=== PATIENT | male | born 1940 | race Caucasian/White ===

== ENCOUNTER 2019-10-04 13:30 | Outpatient (RCR) | payer MEDICARE, BC, SELFPAY ==
[2019-08-28 11:50] VITALS: PULSE 55
--- NOTE | 2019-09-24 15:20 | PCCPR ---
Absent today, due to recent skin biopsy, plans to return Tuesday.
--- NOTE | 2019-10-10 09:32 | PCCCNOTE ---
Program is temporarily suspended due to COVID outbreak.
--- NOTE | 2019-10-17 13:47 | PCCPR ---
Called patient in regards to the temporary closure of our department continuing until at least November 14. Patient is doing well and states he is walking, taking the stairs often, and doing a lot of yardwork. Will mail out temporary home based exercise guidelines. Will continue to follow patient weekly.
--- NOTE | 2019-10-24 11:18 | PCCPR ---
Addendum entered by Erika Liao RN 10/24/19 11:46: Jose Cruz returned our call, he is doing well, received the exercise guidelines in the mail and is busy doing yard work and is walking on the treadmill at home as well as stretches. He has not complaints. Original Note: Called Jose Cruz today for weekly checks, did not answer phone, message left.
--- NOTE | 2019-10-30 15:10 | PCCPR ---
Addendum entered by Miguelina Bradley RN 10/31/19 11:09: Jose Cruz returned call. Left voicemail stating he is doing fine. Will follow up with him next week. Original Note: Called Jose Cruz for our weekly phone calls to check on his activity and progress. Unable to reach him message left.
--- NOTE | 2019-11-07 13:35 | PCCPR ---
Weekly update call-Left message.
--- NOTE | 2019-11-14 13:08 | PCCPR ---
Weekly update call-informed patient of continued closure through the month of November due to the extension of the [facility] order. No questions at this time.
--- NOTE | 2019-11-29 12:56 | PCCPR ---
Starting Bi-Weekly Calls. Spoke with patient. No questions or concerns at this time.
--- NOTE | 2019-12-13 14:48 | PCCPR ---
Bi-weekly phone call made, left message.
--- NOTE | 2019-12-25 13:34 | PCCPR ---
Spoke with Gause today discussed our plan to resume classes January with new safety guidelines due to jignesh. He is still interested in returning. Explained he will be mailing out some guideline information on the new expectations and procedures.
== END 2019-10-04 23:59 | disposition home or self-care (01) ==
LOC: ANHCPREHAB 13:30
PROVIDERS: PCP Internal Medicine
DX: Z95.2 Presence of prosthetic heart valve (principal)
CPT/HCPCS: 93798

== ENCOUNTER 2020-02-03 12:34 | Emergency (ER) | payer MEDICARE, BC, SELFPAY ==
--- NOTE | 2020-02-03 12:42 | ED.URI ---
HPI - URI/Sore Throat General Chief Complaint: Upper Respiratory Infection Stated Complaint: Sore throat/dizziness Time Seen by Provider: 02/03/20 12:47 Source: patient and RN notes reviewed Mode of arrival: ambulatory Limitations: no limitations History of Present Illness HPI Narrative: This is a 79 years old male presents to the office for an evaluation of sore throat. Onset: 5days. Associated with sinus pressure, dizziness. His PCP called in nasal spray which has not helping. He supposes to visit his sister at the [facility] and wants to make sure he is not contiguous to go there this evening. He was a former smoker and quit many years ago. Related Data Home Medications Medication Instructions Recorded Confirmed albuterol sulfate [ProAir HFA] 2 puff INHALATION QID PRN 08/28/19 08/28/19 amlodipine 5 mg PO DAILY 08/28/19 08/28/19 aspirin 325 mg PO DAILY 08/28/19 08/28/19 cephalexin 500 mg PO Q12H PRN 08/28/19 08/28/19 denosumab [Prolia] 60 mg SUBCUT [id number] 08/28/19 08/28/19 dexlansoprazole [Dexilant] 30 mg PO DAILY 08/28/19 08/28/19 hydrocodone-acetaminophen 1 tablet PO Q6H PRN 08/28/19 08/28/19 lisinopril 5 mg PO DAILY 08/28/19 08/28/19 metoprolol tartrate 100 mg PO Q12H 08/28/19 08/28/19 mometasone [Nasonex] 2 spray INTRANASAL DAILY 08/28/19 08/28/19 uqfbleqynzzk-nym-qqer-FA-vit K 1 tablet PO DAILY 08/28/19 08/28/19 [Adults Multivitamin] mupirocin 1 applic TOPICAL TID 08/28/19 08/28/19 ondansetron 4 mg PO Q6H PRN 08/28/19 08/28/19 polyethylene glycol 3350 [Miralax] 17 g PO DAILY 08/28/19 08/28/19 prednisolone acetate [Pred Forte] 1 drp RIGHTEYE DAILY 08/28/19 08/28/19 simvastatin 20 mg PO HS 08/28/19 08/28/19 umeclidinium-vilanterol [Anoro 1 inh INHALATION DAILY 08/28/19 08/28/19 Ellipta] vitamin B complex 1 cap PO DAILY 08/28/19 08/28/19 umeclidinium-vilanterol [Anoro 1 inh INHALATION DAILY 09/06/19 09/06/19 Ellipta] Allergies Allergy/AdvReac Type Severity Reaction Status Date / Time No Known Allergies Allergy Unverified 09/06/18 10:40 Review of Systems Review of Systems: Narrative: CONSTITUTIONAL: Denies fever, chills ENT: Reports throat pain when he swallows. Denies ears pain. CARDIOVASCULAR: Denies chest pain, palpitation RESPIRATORY: Denies dyspnea, wheezing, cough GASTROINTESTINAL: Denies abdominal pain, nausea, vomiting, diarrhea. SKIN: Denies rash MUSCULOSKELETAL: Denies acute back pain NEUROLOGIC: Denies lightheaded. Reports dizziness at times described as motion sickness/room spinning when he moves his head too quickly. All other systems reviewed are negative, except as documented in HPI. [facility] Past Medical History Medical History Asthma COPD (chronic obstructive pulmonary disease) GERD (gastroesophageal reflux disease) HTN (hypertension) Hypercholesterolemia IBS (irritable bowel syndrome) Left cataract Systolic murmur Surgical History Surgical History H/O umbilical hernia repair Family History Family History Father Acute myocardial infarction Hypertension Mother Cerebrovascular accident Hypertension Mother Ovarian cancer Father Lung cancer Sibling Hypertension Social History Social History Smoking packs per day: 1 Smoking cigarettes per day: 20.0 Years smoked: 3 Smoking pack-years: 3.00 Smoking status: Former smoker Tobacco type: cigarettes Alcohol intake: never Substance use: never Gender identity (if verbalized by the patient): Male Comments At time of signature, I agree with nursing past medical, surgical, social and family history. There is no relevant family history pertinent to the presenting complaint. Exam Narrative: Exam Narrative: GENERAL: This is a well-nourished, well-developed patient, in no apparent distr
[2020-02-03 12:45] VITALS: BP 130/73; PULSE 58; RESP 16; TEMP 37.5; O2SAT 99
== END 2020-02-03 13:05 | disposition home or self-care (01) ==
PROVIDERS: Emergency Provider Nurse Practitioner; PCP Internal Medicine
DX: J01.40 Acute pansinusitis, unspecified (principal); Z87.891 Personal history of nicotine dependence; J44.9 Chronic obstructive pulmonary disease, unspecified; K21.9 Gastro-esophageal reflux disease without esophagitis; I10 Essential (primary) hypertension; E78.00 Pure hypercholesterolemia, unspecified; R01.1 Cardiac murmur, unspecified
CPT/HCPCS: 99213; G0463

== ENCOUNTER 2020-08-26 06:12 | Emergency (ER) | payer MEDICARE, BC, SELFPAY ==
--- NOTE | ~2020-08-26 | XR_ITS ---
EXAMINATION: XR chest 2V DATE: 08/26/2020 06:40 INDICATION: Dizziness. TECHNIQUE: Frontal and lateral views of the chest were obtained. COMPARISON: None. FINDINGS: There is mild atelectasis in the lower lung zones. No pleural effusion or pneumothorax. The heart size is normal. Sternotomy wires are noted. IMPRESSION: 1. Mild atelectasis in the lower lung zones. Reviewed, dictated and finalized at location A. [employer]
[2020-08-26 06:09] VITALS: BP 163/81; PULSE 71; RESP 16; TEMP 36.4; O2SAT 98
--- NOTE | 2020-08-26 06:15 | ECG_ITS ---
Measurements Intervals [place] Rate: 66 P: 54 [place]: 177 QRS: -25 QRSD: 110 T: 73 QT: 392 QTc: 412 Interpretive Statements SINUS RHYTHM BORDERLINE ST-T WAVE ABNORMALITY- HIGH LATERAL LEADS BASELINE ARTIFACT- I, II, AVR, AVL, AVF, V1 BORDERLINE ECG Electronically Signed On 08-26-2020 7:01:00 DYNAMOMETER TESTER by Gideon Weller D.O.
--- NOTE | 2020-08-26 06:17 | ED.DIZZY ---
HPI - Dizziness General Chief Complaint: Dizziness Stated Complaint: dizziness History of Present Illness HPI Narrative: Patient is an 79-year-old male who presents ER with sudden onset dizziness. Patient woke up from sleeping and stood up to go the bathroom when everything started spinning. He felt unbalanced. He did not fall or strike his head. He also felt very nauseous but did not vomit. No chest pain or shortness of breath. Does report some mild left shoulder blade that he is unsure why he has. He also reports he has been having some ringing in his right ear that is new today. He reports that that is intermittent but it is associate with his symptoms today. Symptoms are worse with turning his head left and right. No focal numbness or weakness in arm or leg. No slurred speech. Related Data Home Medications Medication Instructions Recorded Confirmed albuterol sulfate [ProAir HFA] 2 puff INHALATION QID PRN 08/28/19 08/28/19 amlodipine 5 mg PO DAILY 08/28/19 08/28/19 aspirin 325 mg PO DAILY 08/28/19 08/28/19 cephalexin 500 mg PO Q12H PRN 08/28/19 08/28/19 denosumab [Prolia] 60 mg SUBCUT [id number] 08/28/19 08/28/19 dexlansoprazole [Dexilant] 30 mg PO DAILY 08/28/19 08/28/19 hydrocodone-acetaminophen 1 tablet PO Q6H PRN 08/28/19 08/28/19 lisinopril 2.5 mg PO DAILY 08/28/19 08/28/19 metoprolol tartrate 100 mg PO Q12H 08/28/19 08/28/19 mometasone [Nasonex] 2 spray INTRANASAL DAILY 08/28/19 08/28/19 bmlsbhfzvrws-sbi-vhsc-FA-vit K 1 tablet PO DAILY 08/28/19 08/28/19 [Adults Multivitamin] mupirocin 1 applic TOPICAL TID 08/28/19 08/28/19 ondansetron 4 mg PO Q6H PRN 08/28/19 08/28/19 polyethylene glycol 3350 [Miralax] 17 g PO DAILY 08/28/19 08/28/19 prednisolone acetate [Pred Forte] 1 drp RIGHTEYE DAILY 08/28/19 08/28/19 simvastatin 20 mg PO HS 08/28/19 08/28/19 umeclidinium-vilanterol [Anoro 1 inh INHALATION DAILY 08/28/19 08/28/19 Ellipta] vitamin B complex 1 cap PO DAILY 08/28/19 08/28/19 umeclidinium-vilanterol [Anoro 1 inh INHALATION DAILY 09/06/19 09/06/19 Ellipta] ergocalciferol (vitamin D2) tablet PO 08/26/20 vdwdczuqkmkn-qekgstsc-dlkonr 1 tablet PO DAILY 08/26/20 [Centrum Silver] umeclidinium-vilanterol [Anoro INHALATION 08/26/20 Ellipta] Allergies Allergy/AdvReac Type Severity Reaction Status Date / Time No Known Allergies Allergy Unverified 09/06/18 10:40 Review of Systems Review of Systems: All systems reviewed & are unremarkable except as noted in HPI and below Constitutional: Constitutional: Denies chills, Denies fever(s) and Denies weakness ENT: Reports dizziness and Denies nasal congestion Comments: Tinnitus Cardiovascular: Cardiovascular: Denies chest pain, Denies rapid heart rate and Denies radiating jaw, neck or arm pain Respiratory: Respiratory: Denies cough, Denies dyspnea and Denies wheezing Gastrointestinal: Gastrointestinal: Reports nausea and Denies vomiting Neurologic: Reports dizziness, Denies headache(s), Denies focal weakness and Denies numbness PMFSH Past Medical History Medical History (Updated 08/26/20 @ 07:46 by Eris Magana MD) Asthma COPD (chronic obstructive pulmonary disease) GERD (gastroesophageal reflux disease) HTN (hypertension) Hypercholesterolemia IBS (irritable bowel syndrome) Left cataract Systolic murmur Surgical History Surgical History (Updated 08/26/20 @ 06:19 by Eris Magana MD) H/O umbilical hernia repair History of aortic valve replacement Family History Family History Father Acute myocardial infarction Hypertension Mother Cerebrovascular accident Hypertension Mother Ovarian cancer Father Lung cancer Sibling Hypertension Social History Social History Smoking packs per day: 1 Smoking cigarettes per day: 20.0 Years smoked: 3 Smoking pack-years: 3.00 Smoking status: Former smoker Tobacco
[2020-08-26] MEDS: SODIUM CHLORIDE 0.9% IV 500 ML 999 ML IV CONT (06:33)
[2020-08-26 06:34] LABS: Basophils Absolute Auto 0.1 K/mm3 (0.0-0.1); Basophils Percent Auto 1.4 % (0.2-1.2); Eosinophils Absolute Auto 0.6 K/mm3 (0-0.3); Eosinophils Percent Auto 8.2 % (0-4.4); Hematocrit 34.3 % (42.0-52.0); Immature Granulocyte Absolute 0.04 K/mm3 (0.00-0.031); Immature Granulocyte Percent A 0.5 % (0-0.5); Lymphocytes Absolute Auto 1.79 K/mm3 (0.9-3.2); Lymphocytes Percent Auto 24.3 % (18.3-44.2); Mean Corpuscular HGB Conc 32.1 g/dl (32-36); Mean Corpuscular Volume 84.1 fl (80-100); Mean Platelet Volume 9.4 fl (7.4-10.4); Neutrophils Absolute Auto 3.8 K/mm3 (1.3-6.7); Neutrophils Percent Auto 51.6 % (45.5-73.1); Platelet Count Result 307 k/mm3 (150-375); Red Blood Count 4.08 M/mm3 (4.6-6.20); Red Cell Distribution Width 15.3 % (11.5-14.5); White Blood Count 7.4 K/mm3 (4.5-10.0)
[2020-08-26] MEDS: MECLIZINE HCL 25 MG TABLET PO (06:34)
[2020-08-26] MEDS: ONDANSETRON INJ 4 MG/2 ML VIAL IV PUSH (06:34)
[2020-08-26 06:44] LABS: Anion Gap 5 mmol/L (8-16); Blood Urea Nitrogen 12 mg/dL (9-20); Calcium 8.5 mg/dL (8.4-10.2); Carbon Dioxide 27 mmol/L (22-30); Chloride 105 mmol/L (98-107); Estimated CRCL calculation 60 ml/min; Estimated Glomerular Filt Rate > 60; Glucose 103 mg/dL (75-110); Potassium 3.9 mmol/L (3.4-5.0); Sodium 137 mmol/L (137-145)
[2020-08-26 06:56] LABS: Troponin I < 0.012 ng/mL (0.000-0.034)
[2020-08-26 07:17] VITALS: BP 155/83; PULSE 75; RESP 22; O2SAT 100
[2020-08-26 08:21] VITALS: BP 137/69; PULSE 64; RESP 20; O2SAT 100
--- NOTE | 2020-08-26 09:00 | PC.NURSE ---
family has arrived to take pt home. no dizziness or distress getting up to wheelchair.
== END 2020-08-26 09:00 | disposition home or self-care (01) ==
PROVIDERS: Emergency Provider Emergency Medicine; PCP Internal Medicine
DX: H81.10 Benign paroxysmal vertigo, unspecified ear (principal); J44.9 Chronic obstructive pulmonary disease, unspecified; K21.9 Gastro-esophageal reflux disease without esophagitis; I10 Essential (primary) hypertension; E78.00 Pure hypercholesterolemia, unspecified; K58.9 Irritable bowel syndrome, unspecified; Z79.82 Long term (current) use of aspirin; Z87.891 Personal history of nicotine dependence; R94.31 Abnormal electrocardiogram [ECG] [EKG]; R91.8 Other nonspecific abnormal finding of lung field
CPT/HCPCS: 36415; 71046; 80048; 84484; 85025; 93005; 96361; 96374; 99284; A9270; J2405; J7040

== ENCOUNTER 2020-10-18 10:21 | Emergency (ER) | payer MEDICARE, BC, SELFPAY ==
[2020-10-18 10:35] VITALS: BP 149/75; PULSE 62; RESP 16; TEMP 36.3; O2SAT 100
--- NOTE | 2020-10-18 10:58 | ED.SKABFB ---
HPI - Skin/Abscess/Foreign Bdy General Chief complaint: Wound/Laceration Stated complaint: Laceration on left leg Time Seen by Provider: 10/18/20 10:40 Source: patient Mode of arrival: ambulatory Limitations: no limitations History of Present Illness HPI narrative: 79-year-old male presents to the [facility] with complaints of a skin tear to the left mid de area. Head cleaned prior to arrival. Believes last tetanus is over 5 years. Related Data Home Medications Medication Instructions Recorded Confirmed albuterol sulfate [ProAir HFA] 2 puff INHALATION QID PRN 08/28/19 10/18/20 amlodipine 5 mg PO DAILY 08/28/19 10/18/20 aspirin 325 mg PO DAILY 08/28/19 10/18/20 denosumab [Prolia] 60 mg SUBCUT [id number] 08/28/19 10/18/20 dexlansoprazole [Dexilant] 30 mg PO DAILY 08/28/19 10/18/20 hydrocodone-acetaminophen 1 tablet PO Q6H PRN 08/28/19 10/18/20 lisinopril 2.5 mg PO DAILY 08/28/19 10/18/20 metoprolol tartrate 100 mg PO Q12H 08/28/19 10/18/20 mometasone [Nasonex] 2 spray INTRANASAL DAILY 08/28/19 10/18/20 ixwnpmmbitgg-jkp-chhk-FA-vit K 1 tablet PO DAILY 08/28/19 10/18/20 [Adults Multivitamin] prednisolone acetate [Pred Forte] 1 drp RIGHTEYE DAILY 08/28/19 08/28/19 simvastatin 20 mg PO HS 08/28/19 10/18/20 umeclidinium-vilanterol [Anoro 1 inh INHALATION DAILY 08/28/19 10/18/20 Ellipta] vitamin B complex 1 cap PO DAILY 08/28/19 10/18/20 ergocalciferol (vitamin D2) 1 tablet PO DAILY 08/26/20 10/18/20 sdbtenrjhtwm-fxtlidwy-vtkorf 1 tablet PO DAILY 08/26/20 10/18/20 [Centrum Silver] umeclidinium-vilanterol [Anoro INHALATION 08/26/20 Ellipta] Allergies Allergy/AdvReac Type Severity Reaction Status Date / Time No Known Allergies Allergy Unverified 09/06/18 10:40 Review of Systems Review of Systems: Narrative: CONSTITUTIONAL: Denies fever, chills, or sweats. CARDIOVASCULAR: Denies chest pain, palpitations, or edema. RESPIRATORY: Denies cough or dyspnea. SKIN: Denies rash or itching. skin tear left mid de MUSCULOSKELETAL: Denies back pain, joint pain, or myalgia. NEUROLOGIC: Denies headache, numbness, or weakness. walks with a normal gait. PSYCHIATRIC: Denies anxiety or depression. All other systems reviewed are negative, except as documented in HPI. [facility] Past Medical History Medical History Asthma COPD (chronic obstructive pulmonary disease) GERD (gastroesophageal reflux disease) HTN (hypertension) Hypercholesterolemia IBS (irritable bowel syndrome) Left cataract Systolic murmur Surgical History Surgical History H/O umbilical hernia repair History of aortic valve replacement Family History Family History Father Acute myocardial infarction Hypertension Mother Cerebrovascular accident Hypertension Mother Ovarian cancer Father Lung cancer Sibling Hypertension Social History Social History Smoking packs per day: 1 Smoking cigarettes per day: 20.0 Years smoked: 3 Smoking pack-years: 3.00 Smoking status: Former smoker Tobacco type: cigarettes Alcohol intake: never Substance use: never Gender identity (if verbalized by the patient): Male Comments At the time of my signature, I reviewed and agree with the nursing past medical, surgical, social, and family history. There is no relevant family history pertinent to the patient complaint. Exam Narrative: Exam Narrative: GENERAL: This is a well-nourished, well-developed patient, in no apparent distress. HEAD: normocephalic, atraumatic. EYES: PERRL. Sclera clear/white. Vision is grossly intact. EARS: External ears normal. CARDIOVASCULAR: Regular rate and rhythm without murmurs, gallops, or rubs. RESPIRATORY: Clear to auscultation. Breath sounds equal bilaterally. No wheezes, rales, or rhonchi. SKIN: warm, intact with no suspicious
[2020-10-18] MEDS: TETANUS,DIPHTHERIA,AC PERTUSSIS ADULT (0.5 ML) BOOSTRIX IM (11:03)
== END 2020-10-18 11:19 | disposition home or self-care (01) ==
PROVIDERS: Emergency Provider Nurse Practitioner; PCP Internal Medicine
DX: S81.812A Laceration without foreign body, left lower leg, initial encounter (principal); X58.XXXA Exposure to other specified factors, initial encounter; Z23 Encounter for immunization; Z87.891 Personal history of nicotine dependence; J44.9 Chronic obstructive pulmonary disease, unspecified; K21.9 Gastro-esophageal reflux disease without esophagitis; I10 Essential (primary) hypertension; E78.00 Pure hypercholesterolemia, unspecified
CPT/HCPCS: 90471; 90715; 99212; G0463

== ENCOUNTER 2021-02-03 09:28 | Emergency (ER) | payer MEDICARE, BC, SELFPAY ==
--- NOTE | ~2021-02-03 | XR_ITS ---
EXAMINATION: XR abdomen/kub 1V INDICATION: Flank and abdominal pain TECHNIQUE: Supine view of the abdomen is obtained. COMPARISON: None FINDINGS: There is a large volume of colonic stool. No free intraperitoneal gas is identified. There are phleboliths in the pelvis. 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 There is mild/moderate lumba r spondylosis. IMPRESSION: 1. Constipation. Reviewed, dictated and finalized at location B. IMPRESSION: 1. Constipation.
--- NOTE | 2021-02-03 09:30 | ED.ABDPAIN ---
HPI - Abdominal Pain General Chief Complaint: Abdominal Pain Stated Complaint: Abdominal Pain Time Seen by Provider: 02/03/21 10:27 Source: patient and RN notes reviewed Mode of arrival: ambulatory Limitations: no limitations History of Present Illness HPI narrative: 80-year-old male presents with concern for bilateral lower abdominal pain, right groin pain. He reports he has been constipated, starting on . Reports on Tuesday he used an enema with very little results. Reports the abdominal and groin pain started on Tuesday. He reports some right flank pain as well. He denies nausea, vomiting, diarrhea, fever, body aches, chills, sweats. Denies poor appetite. MD elicited complaint: abdominal pain Related Data Home Medications Medication Instructions Recorded Confirmed albuterol sulfate [ProAir HFA] 2 puff INHALATION QID PRN 08/28/19 10/18/20 amlodipine 5 mg PO DAILY 08/28/19 10/18/20 dexlansoprazole [Dexilant] 30 mg PO DAILY 08/28/19 10/18/20 hydrocodone-acetaminophen 1 tablet PO Q6H PRN 08/28/19 10/18/20 lisinopril 2.5 mg PO DAILY 08/28/19 10/18/20 itdlxvvcjobb-kvv-qznq-FA-vit K 1 tablet PO DAILY 08/28/19 10/18/20 [Adults Multivitamin] umeclidinium-vilanterol [Anoro 1 inh INHALATION DAILY 08/28/19 10/18/20 Ellipta] vitamin B complex 1 cap PO DAILY 08/28/19 10/18/20 ergocalciferol (vitamin D2) 1 tablet PO DAILY 08/26/20 10/18/20 Allergies Allergy/AdvReac Type Severity Reaction Status Date / Time No Known Allergies Allergy Verified 02/03/21 09:56 Review of Systems Review of Systems: Narrative: CONSTITUTIONAL: Denies malaise, chills, sweats, or fever. CARDIOVASCULAR: Denies chest pain, palpitations, or edema. RESPIRATORY: Denies cough or dyspnea. GASTROINTESTINAL: Reports bilateral lower abdominal pain, right groin pain, constipation. Denies nausea, vomiting, diarrhea, bloody, or mucous stools. GENITOURINARY: Denies dysuria, frequency, urgency MUSCULOSKELETAL: Reports right flank pain. Denies myalgia. All systems reviewed & are unremarkable except as noted in HPI and below PMFSH Past Medical History Medical History Asthma COPD (chronic obstructive pulmonary disease) GERD (gastroesophageal reflux disease) HTN (hypertension) Hypercholesterolemia IBS (irritable bowel syndrome) Left cataract Systolic murmur Surgical History Surgical History H/O umbilical hernia repair History of aortic valve replacement Family History Family History Father Acute myocardial infarction Hypertension Mother Cerebrovascular accident Hypertension Mother Ovarian cancer Father Lung cancer Sibling Hypertension Social History Social History Smoking packs per day: 1 Smoking cigarettes per day: 20.0 Years smoked: 3 Smoking pack-years: 3.00 Smoking status: Former smoker Tobacco type: cigarettes Alcohol intake: never Substance use: never Gender identity (if verbalized by the patient): Male Comments At time of signature, agree with nursing past medical, surgical, social and family history. There is no relevant family history pertinent to the presenting complaint Exam Narrative: Exam Narrative: GENERAL: Well-appearing, well-nourished, and in no acute distress. HEAD: Normocephalic. EYES: PERRLA, conjunctivae clear. NECK: Supple. No lymphadenopathy CHEST: Clear to auscultation. No respiratory distress. HEART: Regular rate and rhythm. ABDOMEN: Soft, right lower quadrant tenderness, right groin tenderness, nondistended, normal active bowel sounds, no palpable or pulsatile masses, no guarding. No CVA tenderness SKIN: Warm, dry, no rash. NEURO: Alert and oriented x3. PSYCH: Normal mood and affect Course Course Emergency Course: Patient is aware of, understands and agrees to reasons to be s
[2021-02-03 09:41] VITALS: BP 118/72; PULSE 51; RESP 20; TEMP 36.5; O2SAT 100
== END 2021-02-03 10:50 | disposition short-term general hospital (02) ==
PROVIDERS: Emergency Provider Nurse Practitioner; PCP Internal Medicine
DX: R10.31 Right lower quadrant pain (principal); F17.210 Nicotine dependence, cigarettes, uncomplicated; J44.9 Chronic obstructive pulmonary disease, unspecified; K21.9 Gastro-esophageal reflux disease without esophagitis; I10 Essential (primary) hypertension; E78.00 Pure hypercholesterolemia, unspecified; Z95.2 Presence of prosthetic heart valve; R01.1 Cardiac murmur, unspecified
CPT/HCPCS: 74018; 81003; 99213; G0463

== ENCOUNTER 2021-04-08 15:24 | Emergency (ER) | payer MEDICARE, BC, SELFPAY ==
--- NOTE | ~2021-04-08 | XR_ITS ---
[[id number] ] INDICATION: Right rib pain TECHNIQUE: Frontal projection of the upper right ribs, frontal projection of the lower right ribs, ob lique projection of all the right ribs, frontal inspiratory chest x-ray for interpretation. FINDINGS: There are no displaced rib fractures identified. There are no soft tissue abnormality see n. The lungs are clear. Status post median sternotomy. IMPRESSION: 1:No displaced rib fractures. Reviewed, dictated and finalized at location A.
[2021-04-08 15:34] VITALS: BP 130/70; PULSE 63; RESP 18; TEMP 36.4; O2SAT 100
[2021-04-08 15:37] VITALS: BP 130/70; PULSE 63; RESP 18; TEMP 36.4; O2SAT 100
--- NOTE | 2021-04-08 15:55 | ED.GENADULT ---
HPI - General Adult General Chief complaint: Trauma Stated complaint: right side pain Time Seen by Provider: 04/08/21 16:17 Source: patient and RN notes reviewed Mode of arrival: ambulatory Limitations: no limitations History of Present Illness HPI narrative: 80-year-old male with history of COPD, GERD, IBS, heart murmur, valve replacement presents with concern for right rib pain. He reports earlier today around 1130 this morning he was carrying logs when his knee gave out causing him to fall. Reports he hit the right arm and right anterior chest on the logs causing pain. Reports the pain has slightly increased in intensity throughout the day. Reports pain with deep breathing sneezing and coughing. He reports he takes hydrocodone 3 times daily for chronic pain. Reports he has a refill due tomorrow, he currently has no hydrocodone left for pain. MD complaint: Rib pain Related Data Home Medications Medication Instructions Recorded Confirmed albuterol sulfate [ProAir HFA] 2 puff INHALATION QID PRN 08/28/19 02/03/21 amlodipine 5 mg PO DAILY 08/28/19 02/03/21 dexlansoprazole [Dexilant] 30 mg PO DAILY 08/28/19 02/03/21 hydrocodone-acetaminophen 1 tablet PO Q6H PRN 08/28/19 02/03/21 lisinopril 2.5 mg PO DAILY 08/28/19 02/03/21 ifkqnnvelnkd-fje-tjwc-FA-vit K 1 tablet PO DAILY 08/28/19 02/03/21 [Adults Multivitamin] umeclidinium-vilanterol [Anoro 1 inh INHALATION DAILY 08/28/19 02/03/21 Ellipta] vitamin B complex 1 cap PO DAILY 08/28/19 02/03/21 ergocalciferol (vitamin D2) 1 tablet PO DAILY 08/26/20 02/03/21 chlorhexidine gluconate 04/08/21 finasteride mg 04/08/21 ondansetron HCl 04/08/21 prednisolone acetate drp 04/08/21 simvastatin mg 04/08/21 tamsulosin mg PO 04/08/21 Allergies Allergy/AdvReac Type Severity Reaction Status Date / Time No Known Allergies Allergy Verified 02/03/21 09:56 Review of Systems Review of Systems: CONSTITUTIONAL: Denies malaise, chills, sweats, or fever. CARDIOVASCULAR: Denies chest pain, palpitations, or edema. RESPIRATORY: Denies cough or dyspnea. SKIN: Denies lacerations, abrasions, bruising, redness, swelling MUSCULOSKELETAL: Reports right anterior chest wall pain that worsens with coughing and deep breathing All systems reviewed & are unremarkable except as noted in HPI and below PMFSH Past Medical History Medical History Asthma COPD (chronic obstructive pulmonary disease) GERD (gastroesophageal reflux disease) HTN (hypertension) Hypercholesterolemia IBS (irritable bowel syndrome) Left cataract Systolic murmur Surgical History Surgical History H/O umbilical hernia repair History of aortic valve replacement Family History Family History Father Acute myocardial infarction Hypertension Mother Cerebrovascular accident Hypertension Mother Ovarian cancer Father Lung cancer Sibling Hypertension Social History Social History Smoking packs per day: 1 Smoking cigarettes per day: 20.0 Years smoked: 3 Smoking pack-years: 3.00 Smoking status: Former smoker Tobacco type: cigarettes Alcohol intake: never Substance use: never Gender identity (if verbalized by the patient): Male Comments At time of signature, agree with nursing past medical, surgical, social and family history. There is no relevant family history pertinent to the presenting complaint Exam Narrative: GENERAL: Well-appearing, well-nourished, and in no acute distress. HEAD: Normocephalic, atraumatic. EYES: PERRLA, sclera clear ENT: Nares clear. Mucous membranes moist. NECK: Supple. CHEST: No respiratory distress. Clear to auscultation. No bony deformities, no asymmetry. Speaks in full sentences. HEART: Regular rate and rhythm. No murmur heard. Normal peripheral pulses. EXTREMITIES:
== END 2021-04-08 16:42 | disposition home or self-care (01) ==
PROVIDERS: Emergency Provider Nurse Practitioner
DX: S20.211A Contusion of right front wall of thorax, initial encounter (principal); W19.XXXA Unspecified fall, initial encounter; J44.9 Chronic obstructive pulmonary disease, unspecified; K21.9 Gastro-esophageal reflux disease without esophagitis; I10 Essential (primary) hypertension; E78.00 Pure hypercholesterolemia, unspecified; H26.9 Unspecified cataract; R01.1 Cardiac murmur, unspecified; Z95.2 Presence of prosthetic heart valve; Z87.891 Personal history of nicotine dependence
CPT/HCPCS: 71101; 99213; G0463

== ENCOUNTER 2021-04-25 14:17 | Emergency (ER) | payer MEDICARE, BC, SELFPAY ==
[2021-04-25 14:28] VITALS: BP 117/73; PULSE 58; RESP 16; TEMP 36.5; O2SAT 100
--- NOTE | 2021-04-25 14:55 | ED.GENADULT ---
HPI - General Adult General Chief complaint: Unspecified Stated complaint: back/chest pain Source: patient Mode of arrival: ambulatory Limitations: no limitations History of Present Illness HPI narrative: Patient is a 80-year-old male who presents to the [facility] via POV for evaluation of chronic pain. Patient reports he has severe arthritis and is needing a prescription refill on his hydrocodone/acetaminophen 7.5 325 mg. He reports he has arthritis in his left knee, back, and right foot and right ankle. He had a fall in January 2021 which worsened pain. He was in this clinic on April 08, 2021 for similar pain and requested a refill for his pain medication PCP his request. He states his request was denied because he lost or misplaced 20 tablets. Reports his next refill for this medication by his PCP is due May 14, 2021. Related Data Home Medications Medication Instructions Recorded Confirmed albuterol sulfate [ProAir HFA] 2 puff INHALATION QID PRN 08/28/19 04/25/21 amlodipine 5 mg PO DAILY 08/28/19 04/25/21 dexlansoprazole [Dexilant] 30 mg PO DAILY 08/28/19 04/25/21 lisinopril 2.5 mg PO DAILY 08/28/19 04/25/21 uoquvirmalgq-dtl-rogd-FA-vit K 1 tablet PO DAILY 08/28/19 04/25/21 [Adults Multivitamin] umeclidinium-vilanterol [Anoro 1 inh INHALATION DAILY 08/28/19 04/25/21 Ellipta] vitamin B complex 1 cap PO DAILY 08/28/19 04/25/21 ergocalciferol (vitamin D2) 1 tablet PO DAILY 08/26/20 04/25/21 chlorhexidine gluconate 0.12 applic PO DIRECTED 04/08/21 04/25/21 finasteride 5 mg PO DAILY 04/08/21 04/25/21 ondansetron HCl 4 mg PO DIRECTED 04/08/21 04/25/21 prednisolone acetate 2 drp OPHTHALMIC (EYE) DIRECTED 04/08/21 04/25/21 simvastatin 20 mg PO DAILY 04/08/21 04/25/21 tamsulosin 0.4 mg PO DAILY 04/08/21 04/25/21 Allergies Allergy/AdvReac Type Severity Reaction Status Date / Time No Known Allergies Allergy Verified 04/25/21 14:30 Review of Systems Review of Systems: Pertinent negatives: fever, chills, sweats, change in appetite, poor p.o. intake, malaise, calf tenderness, skin color changes, rash, warmth, swelling, numbness, tingling, loss of sensation, deformity, decreased range of motion, weakness, difficulty with ambulation/coordination, nausea, vomiting, lymphadenopathy, shortness of breath, chest pain, heart palpitations, and heart murmur. [facility] Past Medical History Medical History Asthma COPD (chronic obstructive pulmonary disease) GERD (gastroesophageal reflux disease) HTN (hypertension) Hypercholesterolemia IBS (irritable bowel syndrome) Left cataract Systolic murmur Surgical History Surgical History H/O umbilical hernia repair History of aortic valve replacement Family History Family History Father Acute myocardial infarction Hypertension Mother Cerebrovascular accident Hypertension Mother Ovarian cancer Father Lung cancer Sibling Hypertension Social History Social History Smoking packs per day: 1 Smoking cigarettes per day: 20.0 Years smoked: 3 Smoking pack-years: 3.00 Smoking status: Former smoker Tobacco type: cigarettes Alcohol intake: never Substance use: never Gender identity (if verbalized by the patient): Male Exam Narrative: GENERAL: Well-appearing, well-nourished, and in no acute distress. HEAD: Normocephalic, atraumatic. NECK: Supple. No Lymphadenopathy or nuchal rigidity appreciated. CHEST: Bilateral lung dean are clear to auscultation. No respiratory distress. No evidence of cough or pleuritic cp upon examination. HEART: Regular rate and rhythm. No murmur, gallop, or rub heard. EXTREMITIES: No evidence of injury, decreased ROM, swelling, cyanosis, hematoma, laceration, abrasion, deformity, r
== END 2021-04-25 15:17 | disposition home or self-care (01) ==
PROVIDERS: Emergency Provider Nurse Practitioner Family
DX: M47.9 Spondylosis, unspecified (principal); M19.071 Primary osteoarthritis, right ankle and foot; J44.9 Chronic obstructive pulmonary disease, unspecified; M17.12 Unilateral primary osteoarthritis, left knee; M54.30 Sciatica, unspecified side; I10 Essential (primary) hypertension; E78.00 Pure hypercholesterolemia, unspecified; H26.9 Unspecified cataract; R01.1 Cardiac murmur, unspecified; Z95.2 Presence of prosthetic heart valve; Z87.891 Personal history of nicotine dependence
CPT/HCPCS: 99211; G0463

== ENCOUNTER 2021-05-29 10:46 | Emergency (ER) | payer MEDICARE, BC, SELFPAY ==
--- NOTE | ~2021-05-29 | XR_ITS ---
EXAMINATION: XR knee RT min 4V DATE: 05/29/2021 11:45 INDICATION: Right knee pain. Fall. TECHNIQUE: 5 views of right knee were obtained. COMPARISON: None. FINDINGS: There is a sagittal fracture of lateral patella with 2 mm gap at the articular surface. The re is mild tricompartmental osteoarthritis. There is a small knee joint effusion. IMPRESSION: 1. Sagittal fracture of lateral patella. 2. Mild right knee osteoarthritis. 3. Small right knee joint effusion. Reviewed, dictated and finalized at location A. [facility]
[2021-05-29 11:00] VITALS: BP 134/68; PULSE 55; RESP 16; TEMP 36.1; O2SAT 97
--- NOTE | 2021-05-29 11:06 | ED.LOWEXIN ---
HPI - Extremity Injury (Lower) General Chief Complaint: Extremity Injury, Lower Stated Complaint: fell right knee pain Source: patient Mode of arrival: ambulatory Limitations: no limitations History of Present Illness HPI Narrative: Patient is an 80-year-old male who presents complaining of right knee pain. Patient reports tripping on curb and falling on knees while going to bank. He denies dizziness prior to fall, he denies LOC, he denies hitting head. Patient is not on anticoagulants. Patient reports abrasion and pain to right knee. Patient is up-to-date with tetanus. He denies taking ixfq-jqo-qbymqls medications prior to arrival. MD complaint: knee injury Related Data Home Medications Medication Instructions Recorded Confirmed albuterol sulfate [ProAir HFA] 2 puff INHALATION QID PRN 08/28/19 05/29/21 amlodipine 5 mg PO DAILY 08/28/19 05/29/21 dexlansoprazole [Dexilant] 30 mg PO DAILY 08/28/19 05/29/21 lisinopril 2.5 mg PO DAILY 08/28/19 05/29/21 zbvcoavytpzi-ebf-amaj-FA-vit K 1 tablet PO DAILY 08/28/19 05/29/21 [Adults Multivitamin] umeclidinium-vilanterol [Anoro 1 inh INHALATION DAILY 08/28/19 05/29/21 Ellipta] vitamin B complex 1 cap PO DAILY 08/28/19 05/29/21 ergocalciferol (vitamin D2) 1 tablet PO DAILY 08/26/20 05/29/21 chlorhexidine gluconate 0.12 applic PO DIRECTED 04/08/21 05/29/21 finasteride 5 mg PO DAILY 04/08/21 05/29/21 ondansetron HCl 4 mg PO DIRECTED 04/08/21 05/29/21 prednisolone acetate 2 drp OPHTHALMIC (EYE) DIRECTED 04/08/21 05/29/21 simvastatin 20 mg PO DAILY 04/08/21 05/29/21 tamsulosin 0.4 mg PO DAILY 04/08/21 05/29/21 Allergies Allergy/AdvReac Type Severity Reaction Status Date / Time No Known Allergies Allergy Verified 05/29/21 10:54 Review of Systems Review of Systems: CONSTITUTIONAL: Denies fever, chills, or sweats. EYES: Denies visual changes, redness, or discharge. ENT: Denies rhinorrhea, congestion, sore throat, or otalgia. CARDIOVASCULAR: Denies chest pain, palpitations, or edema. RESPIRATORY: Denies cough or dyspnea. GASTROINTESTINAL: Denies abdominal pain, nausea, vomiting, or diarrhea. GENITOURINARY: Denies dysuria or hematuria. SKIN: Denies rash or itching. MUSCULOSKELETAL: Right knee pain NEUROLOGIC: Denies headache, numbness, dizziness, or weakness. PSYCHIATRIC: Denies anxiety or depression. [facility] Past Medical History Medical History Asthma COPD (chronic obstructive pulmonary disease) GERD (gastroesophageal reflux disease) HTN (hypertension) Hypercholesterolemia IBS (irritable bowel syndrome) Left cataract Systolic murmur Surgical History Surgical History H/O umbilical hernia repair History of aortic valve replacement Family History Family History Father Acute myocardial infarction Hypertension Mother Cerebrovascular accident Hypertension Mother Ovarian cancer Father Lung cancer Sibling Hypertension Social History Social History Smoking packs per day: 1 Smoking cigarettes per day: 20.0 Years smoked: 3 Smoking pack-years: 3.00 Smoking status: Former smoker Tobacco type: cigarettes Alcohol intake: never Substance use: never Gender identity (if verbalized by the patient): Male Comments At the time of signature, I have reviewed and agree with nursing past medical, surgical, social, and family history unless otherwise noted. Please see nursing chart for further information. There is no relevant family history pertinent to the presenting complaint. Exam Narrative: GENERAL: Well-appearing, well-nourished, and in no acute distress. HEAD: Normocephalic, atraumatic. EYES: EOMI. No redness or drainage. Conjunctiva are normal. ENT: Mucous membranes pink and moist. NECK: AROM. Supple. No lymphadenopathy. No
== END 2021-05-29 12:30 | disposition home or self-care (01) ==
PROVIDERS: Emergency Provider Nurse Practitioner
DX: S82.001A Unspecified fracture of right patella, initial encounter for closed fracture (principal); W01.0XXA Fall on same level from slipping, tripping and stumbling without subsequent striking against object, initial encounter; J44.9 Chronic obstructive pulmonary disease, unspecified; K21.9 Gastro-esophageal reflux disease without esophagitis; I10 Essential (primary) hypertension; E78.00 Pure hypercholesterolemia, unspecified; R01.1 Cardiac murmur, unspecified; Z87.891 Personal history of nicotine dependence
CPT/HCPCS: 73564; 99214; G0463; L1830

== ENCOUNTER 2021-08-05 10:28 | Emergency (ER) | payer MEDICARE, BC, SELFPAY ==
[2021-08-05 10:37] VITALS: BP 156/73; PULSE 60; RESP 16; TEMP 36.7; O2SAT 97
--- NOTE | 2021-08-05 11:09 | ED.GENADULT ---
HPI - General Adult General Chief complaint: Unspecified Stated complaint: right side pain Time Seen by Provider: 08/05/21 11:09 Source: patient Mode of arrival: ambulatory Limitations: no limitations History of Present Illness HPI narrative: Antione Marc is a 80 yo male with a PMH of GERD, COPD, hypertension, seasonal allergies, enlarged prostate, who fell last night over his cane 3:00 the morning when he tried to get up to go to the bathroom; he states he is not injured but that it hurts on his right side where he fell and that he has chronic pain due to arthritis. He is asking for early refill on his hydrocodone Related Data Home Medications Medication Instructions Recorded Confirmed albuterol sulfate [ProAir HFA] 2 puff INHALATION QID PRN 08/28/19 05/29/21 amlodipine 5 mg PO DAILY 08/28/19 05/29/21 dexlansoprazole [Dexilant] 30 mg PO DAILY 08/28/19 05/29/21 lisinopril 2.5 mg PO DAILY 08/28/19 05/29/21 umeclidinium-vilanterol [Anoro 1 inh INHALATION DAILY 08/28/19 05/29/21 Ellipta] vitamin B complex 1 cap PO DAILY 08/28/19 05/29/21 ergocalciferol (vitamin D2) 1 tablet PO DAILY 08/26/20 05/29/21 chlorhexidine gluconate 0.12 applic PO DIRECTED 04/08/21 05/29/21 finasteride 5 mg PO DAILY 04/08/21 05/29/21 ondansetron HCl 4 mg PO DIRECTED 04/08/21 05/29/21 prednisolone acetate 2 drp OPHTHALMIC (EYE) DIRECTED 04/08/21 05/29/21 simvastatin 20 mg PO DAILY 04/08/21 05/29/21 tamsulosin 0.4 mg PO DAILY 04/08/21 05/29/21 Tylenol Arthritis 08/05/21 aspirin 325 mg PO DAILY 08/05/21 08/05/21 azelastine INTRANASAL 08/05/21 metoprolol tartrate 08/05/21 Allergies Allergy/AdvReac Type Severity Reaction Status Date / Time No Known Allergies Allergy Verified 05/29/21 10:54 Review of Systems Review of Systems: CONSTITUTIONAL: Denies fever, chills, sweats. EYES: Denies visual changes, redness, discharge. ENT: Denies rhinorrhea, congestion, sore throat, otalgia. CARDIOVASCULAR: Denies chest pain, palpitations, edema. RESPIRATORY: Denies dyspnea, wheezing, cough GASTROINTESTINAL: Denies abdominal pain, nausea, vomiting, diarrhea. GENITOURINARY: Denies dysuria, hematuria, abnormal discharge SKIN: Denies rash or itching. NEUROLOGIC: Denies numbness, or focal weakness. PSYCHIATRIC: Denies anxiety or depression. Arthritic pain of his back and right knee that he gets hydrocodone for PMFSH Past Medical History Medical History Asthma COPD (chronic obstructive pulmonary disease) GERD (gastroesophageal reflux disease) HTN (hypertension) Hypercholesterolemia IBS (irritable bowel syndrome) Left cataract Systolic murmur Surgical History Surgical History H/O umbilical hernia repair History of aortic valve replacement Family History Family History Father Acute myocardial infarction Hypertension Mother Cerebrovascular accident Hypertension Mother Ovarian cancer Father Lung cancer Sibling Hypertension Social History Social History Smoking packs per day: 1 Smoking cigarettes per day: 20.0 Years smoked: 3 Smoking pack-years: 3.00 Smoking status: Former smoker Tobacco type: cigarettes Alcohol intake: never Substance use: never Gender identity (if verbalized by the patient): Male Comments At time of signature, I agree with nursing past medical, surgical, social and family history. There is no relevant family history pertinent to the presenting complaint. Exam Narrative: GENERAL: This is a well-nourished, well-developed patient, in mild distress. HEAD: normocephalic, atraumatic. EYES: Sclera clear/white. Vision is grossly intact. EARS: External ears normal,. Hearing grossly intact. NOSE: External nose normal without nasal discharge, nares without redness, no rhin
== END 2021-08-05 11:22 | disposition home or self-care (01) ==
PROVIDERS: Emergency Provider Nurse Practitioner; PCP Internal Medicine
DX: M19.90 Unspecified osteoarthritis, unspecified site (principal); K21.9 Gastro-esophageal reflux disease without esophagitis; J44.9 Chronic obstructive pulmonary disease, unspecified; I10 Essential (primary) hypertension; E78.00 Pure hypercholesterolemia, unspecified; H26.9 Unspecified cataract; R01.1 Cardiac murmur, unspecified; Z95.2 Presence of prosthetic heart valve; Z87.891 Personal history of nicotine dependence
CPT/HCPCS: 99213; G0463

== ENCOUNTER 2021-09-01 06:24 | Emergency (ER) | payer MEDICARE, BC, SELFPAY ==
--- NOTE | ~2021-09-01 | XR_ITS ---
EXAMINATION: XR ribs RT 2V w CXR 2V DATE: 09/01/2021 07:08 INDICATION: Right chest pain. Fall. TECHNIQUE: Frontal and lateral views of the chest on 3 radiographs and 2 views of the right ribs on 3 radiographs were obtained. COMPARISON: Chest 2 views 08/26/2020 FINDINGS: CHEST TWO VIEWS: There is no pneumonia, pleural effusion, or pneumothorax. The heart size is normal. There are changes of heart valve replacement. There is a compression fracture in lower thoracic spine . RIGHT RIBS: There is no rib fracture. IMPRESSION: 1. Age-indeterminate compression fracture in lower thoracic spine, new from 08/26/2020. 2. No rib fracture. Reviewed, dictated and finalized at location A. [facility] IMPRESSION: 1. Age-indeterminate compression fracture in lower thoracic spine, new from 08/26. 2. No rib fracture.
[2021-09-01 06:41] VITALS: BP 161/85; PULSE 61; RESP 18; TEMP 36.2; O2SAT 100
--- NOTE | 2021-09-01 06:43 | ED.FALL ---
HPI - Fall General Chief Complaint: Fall Stated Complaint: fall, right rib pain, short of breath Time Seen by Provider: 09/01/21 06:36 Source: patient Mode of arrival: ambulatory Limitations: no limitations History of Present Illness HPI Narrative: Patient is an 80-year-old male complaining of right rib pain, 8 out of 10, dull, worse with palpation movement after he lost his balance and fell hitting his right side on a furniture. Patient states that he has a history of bad arthritis and a busted kneecap and that is why at times he loses his balance. Patient denies any loss of consciousness. Patient was able to stand up and ambulate after the fall. Patient denies any symptoms prior to the fall. Patient denies any head, neck, abdomen, pelvis, hip or any extremity pain/injury. Related Data Home Medications Medication Instructions Recorded Confirmed albuterol sulfate [ProAir HFA] 2 puff INHALATION QID PRN 08/28/19 05/29/21 amlodipine 5 mg PO DAILY 08/28/19 05/29/21 dexlansoprazole [Dexilant] 30 mg PO DAILY 08/28/19 05/29/21 lisinopril 2.5 mg PO DAILY 08/28/19 05/29/21 umeclidinium-vilanterol [Anoro 1 inh INHALATION DAILY 08/28/19 05/29/21 Ellipta] vitamin B complex 1 cap PO DAILY 08/28/19 05/29/21 ergocalciferol (vitamin D2) 1 tablet PO DAILY 08/26/20 05/29/21 chlorhexidine gluconate 0.12 applic PO DIRECTED 04/08/21 05/29/21 finasteride 5 mg PO DAILY 04/08/21 05/29/21 ondansetron HCl 4 mg PO DIRECTED 04/08/21 05/29/21 prednisolone acetate 2 drp OPHTHALMIC (EYE) DIRECTED 04/08/21 05/29/21 simvastatin 20 mg PO DAILY 04/08/21 05/29/21 tamsulosin 0.4 mg PO DAILY 04/08/21 05/29/21 Tylenol Arthritis 08/05/21 aspirin 325 mg PO DAILY 08/05/21 08/05/21 azelastine INTRANASAL 08/05/21 metoprolol tartrate 08/05/21 Allergies Allergy/AdvReac Type Severity Reaction Status Date / Time No Known Allergies Allergy Verified 05/29/21 10:54 Review of Systems Review of Systems: All systems reviewed & are unremarkable except as noted in HPI and below Constitutional: Constitutional: Denies body ache(s), Denies chills, Denies excessive sweating, Denies fatigue, Denies fever(s), Denies headache(s), Denies lethargy, Denies malaise, Denies weakness and Denies weight loss Eyes: Eyes: Denies blurry vision, Denies change in vision and Denies loss of vision ENT: Denies dizziness, Denies ear discharge, Denies headache(s), Denies lip swelling, Denies epistaxis, Denies nasal congestion, Denies neck pain, Denies throat swelling and Denies tongue swelling Cardiovascular: Cardiovascular: Denies diaphoresis, Denies rapid heart rate, Denies edema, Denies irregular heart rhythm, Denies lightheadedness, Denies palpitations, Denies dyspnea and Denies dyspnea on exertion Respiratory: Respiratory: Denies chest congestion, Denies cough, Denies hemoptysis, Denies dyspnea and Denies dyspnea on exertion Gastrointestinal: Gastrointestinal: Denies abdominal pain, Denies melena, Denies hematochezia, Denies diarrhea, Denies nausea, Denies vomiting and Denies hematemesis Musculoskeletal: Musculoskeletal: Denies abnormal gait, Denies deformity, Denies joint swelling, Denies limited range of motion, Denies neck pain and Denies numbness Neurologic: Denies Abnormal speech present, Denies abnormal gait, Denies confusion, Denies dizziness, Denies headache(s), Denies focal weakness, Denies loss of vision, Denies numbness, Denies Other visual disturbances, Denies Sensory deficit (Neuro) and Denies weakness Psychiatric: Psychiatric: Denies confusion, Denies depression, Denies auditory hallucinations, Denies homicidal ideation and Denies suicidal ideation Endocrine: Endocrine: Denies cold intolerance, Denies excessive sweating, Denies fatigue, Denies heat intolerance and Denies palpitations Hematologic/Lymphatic: Hematologic/Lymphatic: Denies easy bleeding and Denies easy bruising Allergic/Immunologic: Allergic/Immunologic: Denies lip swelling, Denies throat swelling and
[2021-09-01] MEDS: ACETAMINOPHEN 325 MG TABLET 650 MG PO (07:09)
[2021-09-01] MEDS: KETOROLAC 30 MG/ML VIAL (*BKC) IM (07:10)
[2021-09-01 07:12] VITALS: BP 146/71; PULSE 64; RESP 18; O2SAT 100
== END 2021-09-01 07:45 | disposition home or self-care (01) ==
PROVIDERS: Emergency Provider Emergency Medicine; PCP Internal Medicine
DX: S20.211A Contusion of right front wall of thorax, initial encounter (principal); J44.9 Chronic obstructive pulmonary disease, unspecified; I10 Essential (primary) hypertension; E78.00 Pure hypercholesterolemia, unspecified; K21.9 Gastro-esophageal reflux disease without esophagitis; K58.9 Irritable bowel syndrome, unspecified; Z95.2 Presence of prosthetic heart valve; Z79.82 Long term (current) use of aspirin; Z87.891 Personal history of nicotine dependence; W01.190A Fall on same level from slipping, tripping and stumbling with subsequent striking against furniture, initial encounter
CPT/HCPCS: 71046; 71100; 96372; 99283; A9270; J1885

== ENCOUNTER 2021-09-13 12:02 | Emergency (ER) | payer MEDICARE, BC, SELFPAY ==
--- NOTE | 2021-09-13 12:06 | ED.GENADULT ---
HPI - General Adult General Chief complaint: Upper Respiratory Infection Stated complaint: sore throat Time Seen by Provider: 09/13/21 12:10 Source: patient, RN notes reviewed and old records reviewed Mode of arrival: ambulatory Limitations: no limitations History of Present Illness HPI narrative: 80-year-old male presents to the [facility] with complaints of a sore throat and pain with swallowing. Patient states is been going on approximately 5 days. Also has swollen lymph nodes. Denies fevers, chest pain, abdominal pain. No nausea vomiting or diarrhea. Was able to eat his breakfast and his Argentine fries today but states it hurts to swallow. Has been able to swallow pills without difficulty Onset (ago): day(s) (5) Related Data Home Medications Medication Instructions Recorded Confirmed albuterol sulfate [ProAir HFA] 2 puff INHALATION QID PRN 08/28/19 09/13/21 amlodipine 5 mg PO DAILY 08/28/19 09/13/21 dexlansoprazole [Dexilant] 30 mg PO DAILY 08/28/19 09/13/21 lisinopril 2.5 mg PO DAILY 08/28/19 09/13/21 umeclidinium-vilanterol [Anoro 1 inh INHALATION DAILY 08/28/19 09/13/21 Ellipta] vitamin B complex 1 cap PO DAILY 08/28/19 09/13/21 ergocalciferol (vitamin D2) 1 tablet PO DAILY 08/26/20 09/13/21 chlorhexidine gluconate 0.12 applic PO DIRECTED 04/08/21 09/13/21 finasteride 5 mg PO DAILY 04/08/21 09/13/21 ondansetron HCl 4 mg PO DIRECTED 04/08/21 09/13/21 prednisolone acetate 2 drp OPHTHALMIC (EYE) DIRECTED 04/08/21 09/13/21 simvastatin 20 mg PO DAILY 04/08/21 09/13/21 tamsulosin 0.4 mg PO DAILY 04/08/21 09/13/21 acetaminophen [Tylenol Arthritis] 650 mg PO Q8H 08/05/21 09/13/21 aspirin 325 mg PO DAILY 08/05/21 09/13/21 azelastine 1 spray INTRANASAL DAILY 08/05/21 09/13/21 metoprolol tartrate 100 mg PO DAILY 08/05/21 09/13/21 Allergies Allergy/AdvReac Type Severity Reaction Status Date / Time No Known Allergies Allergy Verified 09/13/21 12:24 Review of Systems Review of Systems: All systems reviewed & are unremarkable except as noted in HPI and below Constitutional: Constitutional: Reports no additional constitutional complaints, Denies chills and Denies fever(s) Eyes: Eyes: Reports no additional eye complaints ENT: Reports as per HPI and Reports sore throat Cardiovascular: Cardiovascular: Reports no additional cardiovascular complaints and Denies chest pain Respiratory: Respiratory: Reports no additional respiratory complaints, Denies cough and Denies dyspnea Gastrointestinal: Gastrointestinal: Reports no additional gastrointestinal complaints and Denies abdominal pain Musculoskeletal: Musculoskeletal: Reports no additional musculoskeletal complaints Integumentary/Breasts: Skin/Breast: Reports system reviewed and no additional complaints, except as docu Neurologic: Reports system reviewed and no additional complaints, except as documented Psychiatric: Psychiatric: Reports no additional psychiatric complaints Allergic/Immunologic: Allergic/Immunologic: Reports no additional allergic/immunologic complaints PMFSH Past Medical History Medical History Asthma COPD (chronic obstructive pulmonary disease) GERD (gastroesophageal reflux disease) HTN (hypertension) Hypercholesterolemia IBS (irritable bowel syndrome) Left cataract Systolic murmur Surgical History Surgical History H/O umbilical hernia repair History of aortic valve replacement Family History Family History Father Acute myocardial infarction Hypertension Mother Cerebrovascular accident Hypertension Mother Ovarian cancer Father Lung cancer Sibling Hypertension Social History Social History Smoking packs per day: 1 Smoking cigarettes per day: 20.0 Years smoked: 3 Smoking pack-years: 3.00 Josei
[2021-09-13 12:10] VITALS: BP 154/90; PULSE 59; RESP 16; TEMP 36.5; O2SAT 99
[2021-09-14 08:26] LABS: SARS-CoV-2 RNA PCR Negative
== END 2021-09-13 13:00 | disposition home or self-care (01) ==
PROVIDERS: Emergency Provider Nurse Practitioner; PCP Internal Medicine
DX: R59.9 Enlarged lymph nodes, unspecified (principal); J02.9 Acute pharyngitis, unspecified; Z20.822 Contact with and (suspected) exposure to COVID-19; Z87.891 Personal history of nicotine dependence; J44.9 Chronic obstructive pulmonary disease, unspecified; K21.9 Gastro-esophageal reflux disease without esophagitis; I10 Essential (primary) hypertension; E78.00 Pure hypercholesterolemia, unspecified; H26.9 Unspecified cataract; R01.1 Cardiac murmur, unspecified; Z95.2 Presence of prosthetic heart valve
CPT/HCPCS: 87081; 87880; 99213; C9803; G0463; U0003; U0005

== ENCOUNTER 2021-11-12 10:33 | Emergency (ER) | payer MEDICARE, BC, SELFPAY ==
[2021-11-12 10:42] VITALS: BP 94/64; PULSE 58; RESP 16; TEMP 36.2; O2SAT 100
--- NOTE | 2021-11-12 10:58 | ED.GENADULT ---
HPI - General Adult General Chief complaint: Unspecified Stated complaint: HPB Time Seen by Provider: 11/12/21 10:58 Source: patient Mode of arrival: ambulatory Limitations: no limitations History of Present Illness HPI narrative: 81-year-old male presents for blood pressure check. Was seen by his pain management physician yesterday and blood pressure was low. Was told by his pain management physician to skip his nighttime dose of naltrexone and metoprolol. Patient was recently taken off of his hydrocodone and started naltrexone about 1 week ago. He went to the pharmacy first but they were not able to check his blood pressure for him. He denies chest pain, shortness of breath, fatigue. All systems reviewed and negative except as noted above. Related Data Home Medications Medication Instructions Recorded Confirmed albuterol sulfate [ProAir HFA] 2 puff INHALATION QID PRN 08/28/19 09/13/21 amlodipine 5 mg PO DAILY 08/28/19 09/13/21 dexlansoprazole [Dexilant] 30 mg PO DAILY 08/28/19 09/13/21 lisinopril 2.5 mg PO DAILY 08/28/19 09/13/21 umeclidinium-vilanterol [Anoro 1 inh INHALATION DAILY 08/28/19 09/13/21 Ellipta] vitamin B complex 1 cap PO DAILY 08/28/19 09/13/21 ergocalciferol (vitamin D2) 1 tablet PO DAILY 08/26/20 09/13/21 chlorhexidine gluconate 0.12 applic PO DIRECTED 04/08/21 09/13/21 finasteride 5 mg PO DAILY 04/08/21 09/13/21 ondansetron HCl 4 mg PO DIRECTED 04/08/21 09/13/21 prednisolone acetate 2 drp OPHTHALMIC (EYE) DIRECTED 04/08/21 09/13/21 simvastatin 20 mg PO DAILY 04/08/21 09/13/21 tamsulosin 0.4 mg PO DAILY 04/08/21 09/13/21 acetaminophen [Tylenol Arthritis] 650 mg PO Q8H 08/05/21 09/13/21 aspirin 325 mg PO DAILY 08/05/21 09/13/21 azelastine 1 spray INTRANASAL DAILY 08/05/21 09/13/21 metoprolol tartrate 100 mg PO DAILY 08/05/21 09/13/21 naltrexone 11/12/21 11/12/21 Allergies Allergy/AdvReac Type Severity Reaction Status Date / Time No Known Allergies Allergy Verified 09/13/21 12:24 Review of Systems Review of Systems: CONSTITUTIONAL: Denies fever, chills, or sweats. EYES: Denies visual changes, redness, or discharge. ENT: Denies rhinorrhea, congestion, sore throat, or otalgia. CARDIOVASCULAR: Denies chest pain, palpitations, or edema. RESPIRATORY: Denies cough or dyspnea. GASTROINTESTINAL: Denies abdominal pain, nausea, vomiting, or diarrhea. GENITOURINARY: Denies dysuria or hematuria. SKIN: Denies rash or itching. MUSCULOSKELETAL: Denies back pain, joint pain, or myalgia. NEUROLOGIC: Denies headache, numbness, or weakness. PSYCHIATRIC: Denies anxiety or depression. All other systems reviewed are negative, except as documented in HPI. [facility] Past Medical History Medical History Asthma COPD (chronic obstructive pulmonary disease) GERD (gastroesophageal reflux disease) HTN (hypertension) Hypercholesterolemia IBS (irritable bowel syndrome) Left cataract Systolic murmur Surgical History Surgical History H/O umbilical hernia repair History of aortic valve replacement Family History Family History Father Acute myocardial infarction Hypertension Mother Cerebrovascular accident Hypertension Mother Ovarian cancer Father Lung cancer Sibling Hypertension Social History Social History Smoking packs per day: 1 Smoking cigarettes per day: 20.0 Years smoked: 3 Smoking pack-years: 3.00 Smoking status: Former smoker Tobacco type: cigarettes Alcohol intake: never Substance use: never Gender identity (if verbalized by the patient): Male Comments At time of signature, agree with nursing past medical, surgical, social and family history. There is no relevant family history pertinent to the presenting complaint. Exam Narrative: GENERAL: This is
--- NOTE | 2021-11-12 11:23 | PC.NURSE ---
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 and is naltrexone
[2021-11-12 11:27] VITALS: BP 98/72
== END 2021-11-12 11:27 | disposition home or self-care (01) ==
PROVIDERS: Emergency Provider Nurse Practitioner Family
DX: I95.9 Hypotension, unspecified (principal); J44.9 Chronic obstructive pulmonary disease, unspecified; K21.9 Gastro-esophageal reflux disease without esophagitis; H26.9 Unspecified cataract; R01.1 Cardiac murmur, unspecified; Z95.2 Presence of prosthetic heart valve; Z87.891 Personal history of nicotine dependence
CPT/HCPCS: 99211; 99213; G0463

== ENCOUNTER 2021-12-09 10:00 | Outpatient (RCR) | payer MEDICARE, BC, SELFPAY ==
--- NOTE | 2021-11-20 13:40 | PTOPEVAL ---
PHYSICAL THERAPY EVALUATION AND PLAN OF CARE 11-20-21 Thank you for referring Antione Marc to [facility].? He is scheduled to be seen for therapy? 2 x/week for 4 weeks. Please review, sign, date and return this plan of care PREETHI. I agree with and certify that the following plan of care is medically necessary. Referring Physician Date Attending Provider: Neeru Dye MD Past Medical History Source of Past Medical History Recalled from Previous Visit, Confirmed with Patient/Family Neurological History Hx Neurological Disorders No Significant History Cardiovascular History Hx Cardiac Catheterization Yes Hx Cardiac Surgery Yes Hx Hypercholesterolemia Yes: meds Hx Hypertension Yes: meds Hx Valve Replacement Yes: AVR 06/04/19 Hx Other Cardiac Disorders Yes: aorta replacement 3yrs ago Respiratory History Hx Chronic Obstructive Pulmonary Disease Yes (COPD) Gastrointestinal History Hx Gastroesophageal Reflux Disease Yes Hx Hernia Yes: surgical repair Genitourinary History Hx Benign Prostatic Hyperplasia Yes Hx Bladder Surgery Yes: REMOVED CANCER Musculoskeletal History Hx Arthritis Yes: BACK, B KNEE, R HIP Hx Back Pain Yes Hx Degenerative Disk Disease Yes: LOWER BACK Hx Fractures Yes: right patella- non surgical Hx Osteoporosis Yes Hematological History Hx Hematological Disorders No Significant History Endocrine History Hx Endocrine Disorders No Significant History HEENT History Hx Cataracts Yes: REMOVED Hx Retinal Detachment Yes: RETINAL TEAR LEFT EYE Integumentary History Hx Skin Disorders No Significant History Reproductive History Hx Reproductive Disorders No Significant History Psychosocial History Hx Psychiatric Disorders No Significant History Anesthesia History Hx Anesthesia Reactions No Significant History Other History Hx Cancer Yes: BLADDER Evaluation Information Problem Diagnosis R knee pain, SI pain Onset about 1 year ago Subjective Information s/p patellar fracture about Query Text:As Reported By Patient/ several years ago ; have Family injections in knee about every 4 months--they help with the pain; was doing exercises for leg, but then had heart surgery about 3 yr ago and not done much since then; Diagnostic Tests X-Rays For This Problem Yes: with last injection in Aug Prior Level of Function Activi
--- NOTE | 2021-12-09 10:22 | PCPTNOTE ---
Addendum entered by Kelley Alexander, WELLNESS DIRECTOR 12/09/21 11:01: Pt showed up at 10:30 stating that he was running late and didn't get a chance to call. Pt was okay with a shortened treatment. Original Note: Patient did not show up for scheduled appointment this date. Called and left a message on the answering machine.
--- NOTE | 2021-12-15 18:00 | PCPTNOTE ---
Patient did not show up for scheduled appointment this date.
--- NOTE | 2022-03-15 13:34 | PCPTNOTE ---
LATE ENTRY: PHYSICAL THERAPY DISCHARGE Attending Provider: Neeru Dye MD Patient:Antione Marc Date of :1940 Patient has not returned for any further treatments since 12/09/2021, therefore he will be discharged at this time. Antione received 6 PT sessions, for the diagnosis of R knee pain, from November 20 to ; he then stopped attending. Thank you for referring this patient to [facility]. Please review, sign, date and return this discharge summary PREETHI. I have been updated about the patient's current status and I agree with discharge from the above service at this time. Referring Physician Date
== END 2022-02-18 23:59 | disposition home or self-care (01) ==
LOC: ANHPT 10:00
DX: M25.561 Pain in right knee (principal); G89.29 Other chronic pain
CPT/HCPCS: 97014; 97110; 97112; 97161; 97530; G0283

== ENCOUNTER 2021-12-15 09:35 | Inpatient (IN) | payer MEDICARE, BC, SELFPAY ==
[2021-12-15] VITALS (11 sets, daily range): BP systolic 157–185; BP diastolic 72–103; PULSE 65–81; RESP 14–25; TEMP 35.9–37.1; O2SAT 96–100; BMI 28.0
--- NOTE | ~2021-12-15 | XR_ITS ---
XR knee RT min 4V 12/15/2021 10:20 Indication: Right knee pain after fall Procedure: 4 views right knee Comparison: 05/29/2021 Findings: There is a joint effusion. There is mild osteoarthritis of the right knee. There is a bipar tite patella. No acute fracture or traumatic malalignment. Impression: 1: No acute fracture. 2: Small joint effusion. 3: Mild tricompartment osteoarthritis. Reviewed, dictated and finalized at location A. Impression: 1: No acute fracture. 2: Small joint effusion. 3: Mild tricompartment osteoarthritis.
--- NOTE | ~2021-12-15 | XR_ITS ---
EXAMINATION: XR knee LT min 4V DATE: 12/15/2021 10:20 INDICATION: Left knee pain post fall TECHNIQUE: Anteroposterior, 2 oblique and crosstable lateral views of the left knee were obtained COMPARISON: None. FINDINGS: Left knee alignment is normal. No fracture. Joint spaces appear normal on nonweightbearing imaging. N o joint effusion/layering lipohemarthrosis. Mild prepatellar soft tissue swelling. Small amount of at herosclerotic ossification along the popliteal and distal femoral arteries. IMPRESSION: 1. No left knee joint effusion or acute osseous abnormality. Reviewed, dictated and finalized at location B.
--- NOTE | ~2021-12-15 | XR_ITS ---
EXAMINATION: XR shoulder LT min 2V DATE: 12/15/2021 10:20 INDICATION: Left shoulder pain post fall TECHNIQUE: AP internally and externally rotated, AP oblique externally rotated and transscapular Y vi ews of the left shoulder were obtained. COMPARISON: None FINDINGS: Normal alignment. No fracture. Mild osteoarthritis at the left glenohumeral joint. The acromioclavic ular joint appears normal. Soft tissues are unremarkable. Visualized portions of the lungs are clear. Median sternotomy wires. IMPRESSION: Mild left glenohumeral osteoarthritis. No acute osseous abnormality. Reviewed, dictated and finalized at location B.
--- NOTE | ~2021-12-15 | CT_ITS ---
EXAMINATION: CT brain wo con DATE: 12/15/2021 10:10 INDICATION: Dizziness post fall. Unknown whether there was specific head injury. TECHNIQUE: Computed tomography (CT) of the head was performed without intravenous contrast. Sagittal and coronal reconstructions were performed. The mA was adjusted according to patient size. Iterative reconstruction technique was employed. The dose-length product was 681.00 mGy-cm. COMPARISON: None FINDINGS: No fracture. Small osteoma along the right frontal bone. No acute intracranial hemorrhage, acute infa rction or abnormal extra axial fluid collection. There is moderate scattered white matter hypoattenua tion consistent with chronic small vessel ischemic disease. Symmetric prominence of the sulci consist ent with mild age-appropriate diffuse cerebral volume loss. Ventricles are normal and symmetric. No m ass/mass effect. Changes of bilateral intraocular lens replacement. The orbits, paranasal sinuses and left mastoid air cells are normal. The right mastoid is hypopneumatized with small effusion. Intracr anial calcified cerebral atherosclerosis is noted. IMPRESSION: 1. No fracture or acute intracranial process. 2. Age-related changes including mild diffuse on loss and moderate scattered white matter hypoattenua tion consistent with chronic small vessel ischemic disease. Reviewed, dictated and finalized at location B. IMPRESSION: 1. No fracture or acute intracranial process. 2. Age-related changes including mild diffuse on loss and moderate scattered wh ite matter hypoattenuation consistent with chronic small vessel ischemic diseas e.
--- NOTE | ~2021-12-15 | CT_ITS ---
EXAMINATION: CTA chest PE protocol DATE: 12/15/2021 12:36 INDICATION: Chest injury. Dizziness. TECHNIQUE: Computed tomography angiography (CTA) of the chest was performed with 100 mL Omnipaque-350 intravenous contrast timed to evaluate the pulmonary arteries. Coronal maximum intensity projection 3D-reconstructions were created by the technologist. Automated exposure control and iterative reconst ruction technique were employed. The dose-length product was 420.40 mGy-cm. COMPARISON: Chest 2 views 12/15/2021 FINDINGS: The lungs demonstrate mild atelectasis. Calcified right lung nodules and calcified right hi lar lymph nodes are consistent with old granulomatous disease. No pleural effusion. There is left atr ial enlargement of the heart. There are coronary artery calcifications. There are changes of coronary artery bypass grafting. There are changes of aortic valve replacement. No pericardial effusion. Ther e is no pulmonary embolus. Partially visualized is a 3.3 cm cyst in left kidney. There is an old heal ed fracture of right seventh rib. There is a chronic compression fracture of T9. IMPRESSION: 1. No pulmonary embolus. Reviewed, dictated and finalized at location A. IMPRESSION: 1. No pulmonary embolus.
--- NOTE | ~2021-12-15 | XR_ITS ---
EXAMINATION: XR chest 2V DATE: 12/15/2021 10:20 INDICATION: Fall and bruising at the chest TECHNIQUE: frontal and lateral views of the chest were obtained. COMPARISON: Chest radiograph dated 09/01/2021 FINDINGS: Lungs remain clear with no focal airspace opacities, pulmonary edema, pleural effusion or pneumothora x. The cardiomediastinal silhouette is normal. Postoperative change of prior median sternotomy and ca rdiac valve repair. No change in a chronic lower thoracic vertebral body, likely T9, with 40% anterio r vertebral body height loss. IMPRESSION: 1. No acute cardiopulmonary disease. Reviewed, dictated and finalized at location B.
--- NOTE | ~2021-12-15 | CT_ITS ---
EXAMINATION: CT cervical spine wo con DATE: 12/15/2021 10:09 INDICATION: Neck pain TECHNIQUE: Computed tomography (CT) of the cervical spine was performed without intravenous contrast. The dose-length product was 411 mGy-cm. Automated exposure control and iterative reconstruction tech nique were employed. COMPARISON: None FINDINGS: There is degenerative anterolisthesis at C5-C6 and retrolisthesis at C6-7. No there is schwab tid atherosclerosis. Lung apices are normal. There is multilevel uncinate and facet hypertrophy. Francitas toid process is normal. Lateral masses are normally aligned. Mild levocurvature of the cervical spine . No paraspinal soft tissue abnormality. There is carotid atherosclerosis. IMPRESSION: 1. No acute abnormality of the cervical spine. 2: Moderate cervical spondylosis. Reviewed, dictated and finalized at location A.
--- NOTE | 2021-12-15 09:37 | ED.FALL ---
HPI - Fall General Chief Complaint: Fall Stated Complaint: fall, knee pain Time Seen by Provider: 12/15/21 09:36 Source: patient Mode of arrival: ambulatory Limitations: no limitations History of Present Illness HPI Narrative: Patient is an 81-year-old male who presents to the ED with report of a fall. Patient reports he woke up around 2 AM in the morning to use the restroom and began feeling dizzy walking back from the bathroom. He described the dizziness as lightheadedness and denied any room spinning sensation. He then lost his balance and fell, landing on his knees bilaterally. He complains of pain to his knees, worse on the right than the left. 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 He does not think he hit his head, but is not positive. He takes an aspirin daily. No other blood thinners. He does still feel lightheaded currently in the ED bed and also complains of pain to his left upper arm. He has not taken anything for pain today. He states he has been feeling well the last couple days and eating and drinking OK at home. No recent fever, cough, cold symptoms, headache, chest pain, abdominal pain, difficulty breathing, focal weakness. Patient uses a cane for assistance with ambulation. Related Data Home Medications Medication Instructions Recorded Confirmed albuterol sulfate 90 mcg/actuation 2 puff inhalation QID PRN 08/28/19 12/15/21 aerosol inhaler (ProAir HFA) Shortness Of Breath amlodipine 5 mg tablet 5 mg PO DAILY 08/28/19 12/15/21 dexlansoprazole 30 mg 30 mg PO DAILY 08/28/19 12/15/21 capsule,biphase delayed release (Dexilant) lisinopril 5 mg tablet 2.5 mg PO DAILY 08/28/19 12/15/21 umeclidinium 62.5 mcg-vilanterol 1 inh inhalation DAILY 08/28/19 12/15/21 25 mcg/actuation powdr for inhalation (Anoro Ellipta) vitamin B complex 1 cap PO DAILY 08/28/19 12/15/21 ergocalciferol (vitamin D2) 1,000 1 tablet PO DAILY 08/26/20 12/15/21 unit tablet simvastatin 20 mg tablet 20 mg PO DAILY 04/08/21 12/15/21 acetaminophen 650 mg 650 mg PO Q8H PRN Pain 08/05/21 12/15/21 tablet,extended release azelastine 137 mcg (0.1 %) nasal 2 spray intranasal BID 08/05/21 12/15/21 spray aerosol aspirin 81 mg tablet,delayed 81 mg PO DAILY 12/15/21 12/15/21 release (Aspirin Low Dose) cholecalciferol (vitamin D3) 25 25 mcg PO DAILY 12/15/21 12/15/21 mcg (1,000 unit) capsule (Vitamin D3) finasteride 5 mg tablet 1 tablet PO DAILY 12/15/21 12/15/21 vrurqgvg-nee-autej acid 300 1 tablet PO DAILY 12/15/21 12/15/21 mcg-lycopene 600 mcg-lutein 300 mcg tablet (Centrum Silver Men) prednisolone acetate 1 % eye 1 drp EACH EYE DAILY 12/15/21 12/15/21 drops,suspension tamsulosin 0.4 mg capsule 1 cap PO QPM 12/15/21 12/15/21 Allergies Allergy/AdvReac Type Severity Reaction Status Date / Time grass pollen Allergy Hives Verified 12/15/21 17:48 Review of Systems Review of Systems: CONSTITUTIONAL: Denies fever, chills. EYES: Denies visual changes, redness, or discharge. ENT: Denies rhinorrhea, congestion, sore throat. CARDIOVASCULAR: Denies chest pain. RESPIRATORY: Denies cough or dyspnea. GASTROINTESTINAL: Denies abdominal pain, nausea, vomiting, or diarrhea. GENITOURINARY: Denies dysuria or hematuria. MUSCULOSKELETAL: Reports bilateral knee pain, left upper arm pain. Denies back pain. NEUROLOGIC: Reports dizziness/lightheadedness, possible HI. Denies headache, numbness, or focal weakness. All systems reviewed & are unremarkable except as noted in HPI and below PMFSH Past Medical History Medical History (Updated 12/15/21 @ 14:47 by Nicole Falcon PA-C) Asthma COPD (chronic obstructive pulmonary disease) GERD (gastroesophageal reflux disease) History of brain tumor HTN (hypertension) Hypercholesterolemia IBS (irritable bowel syndrome) Left cataract Systolic murmur Surgical History Surgical History H/O umbilical hernia repair Hi
--- NOTE | 2021-12-15 09:51 | ECG_ITS ---
Measurements Intervals [place] Rate: 68 P: 46 ME: 147 QRS: -21 QRSD: 105 T: 44 QT: 423 QTc: 452 Interpretive Statements SINUS RHYTHM POSSIBLE LEFT ATRIAL ENLARGEMENT BASELINE ARTIFACT- AVR, AVL, AVF BORDERLINE ECG Electronically Signed On 12-15-2021 14:11:46 CDT by Gideon Weller D.O.
[2021-12-15 10:01] LABS: Basophils Absolute Auto 0.1 K/mm3 (0.0-0.1); Basophils Percent Auto 1.1 % (0.2-1.2); Eosinophils Absolute Auto 0.3 K/mm3 (0-0.3); Eosinophils Percent Auto 3.5 % (0-4.4); Hematocrit 30.1 % (42.0-52.0); Hemoglobin 9.5 g/dL (14.0-18.0); Immature Granulocyte Absolute 0.03 K/mm3 (0.00-0.031); Immature Granulocyte Percent A 0.4 % (0-0.5); Lymphocytes Absolute Auto 1.29 K/mm3 (0.9-3.2); Lymphocytes Percent Auto 17.1 % (18.3-44.2); Mean Corpuscular HGB Conc 31.6 g/dl (32-36); Mean Corpuscular Hemoglobin 27.2 pg (26-34); Mean Corpuscular Volume 86.2 fl (80-100); Mean Platelet Volume 9.7 fl (7.4-10.4); Monocytes Percent Auto 13.4 % (2.6-8.5); Neutrophils Absolute Auto 4.9 K/mm3 (1.3-6.7); Neutrophils Percent Auto 64.5 % (45.5-73.1); Platelet Count Result 317 k/mm3 (150-375); Red Blood Count 3.49 M/mm3 (4.6-6.20); Red Cell Distribution Width 16.4 % (11.5-14.5); White Blood Count 7.5 K/mm3 (4.5-10.0)
[2021-12-15 10:12] LABS: Alanine Aminotransferase 15 U/L (6-50); Albumin Level 3.6 g/dL (3.5-5.1); Alkaline Phosphatase 61 U/L (38-126); Anion Gap 8 mmol/L (8-16); Aspartate Amino Transferase 28 U/L (17-59); Bilirubin,Total 1.1 mg/dL (0.2-1.3); Blood Urea Nitrogen 16 mg/dL (9-20); Calcium 8.9 mg/dL (8.4-10.2); Carbon Dioxide 21 mmol/L (22-30); Chloride 109 mmol/L (98-107); Estimated CRCL calculation 47 ml/min; Estimated Glomerular Filt Rate > 60; Glucose 98 mg/dL (65-110); Potassium 2.9 mmol/L (3.4-5.0); Sodium 138 mmol/L (137-145)
--- NOTE | 2021-12-15 10:20 | PC.NURSE ---
Pt to XRAY/CT at this time.
[2021-12-15 10:35] LABS: Troponin I 0.037 ng/mL (0.000-0.034)
[2021-12-15] MEDS: SODIUM CHLORIDE 0.9% IV 500 ML 999 ML IV CONT (10:52)
[2021-12-15] MEDS: POTASSIUM CHLORIDE 20 MEQ TABLET 40 MEQ PO (10:52)
--- NOTE | 2021-12-15 11:19 | PC.NURSE ---
Pt unable to provide u/a, declines straight cath at this time, IV fluids infusing, given a drink as requested, has urinal and call light. Will continue to try to void.
--- NOTE | 2021-12-15 11:38 | PC.NURSE ---
called lab and spoke to Divina about D Dimer add on.
[2021-12-15 11:43] LABS: Appearance Urine Clear (Clear); Bilirubin Urine Negative (Negative); Blood Urine 1+ (Negative); Color Urine Yellow (Yellow); Glucose Urine UA Negative (Negative); Ketones Urine 1+ mg/dL (Negative); Leukocyte Esterase Ur Trace LEU/UL (Negative); Nitrate Urine Positive (Negative); Protein Urine Trace mg/dL (Negative); Urobilinogen Urine 0.2 mg/dL (<2.0)
[2021-12-15 11:47] LABS: Add Urine Microscopic? YES
[2021-12-15] MEDS: HYDROcodone/acetaminophen (*CRX) 5-325 MG TABLET 1 TAB PO ×2 (11:52→20:20)
[2021-12-15 11:59] LABS: Bacteria Urine Trace /hpf; Hyaline Casts Urine 20-29 /lpf; Mucus Urine Rare /lpf; Squamous Epithelial Cell Urine Rare /hpf (Few); WBC Urine 51-75 /hpf
[2021-12-15 12:01] LABS: D Dimer 1.56 ug/mL (<0.48)
[2021-12-15 13:37] LABS: Troponin I 0.029 ng/mL (0.000-0.034)
[2021-12-15] MEDS: POTASSIUM CHLORIDE 20 MEQ PACKET (FOR LIQUID) 40 MEQ PO (14:54)
--- NOTE | 2021-12-15 17:00 | ADMGEN ---
This patient, Antione Marc, was admitted to Medical Room 343-01. Patient/family oriented to hospital policies and general routines including ID bracelet, bed and alarms, visiting hours, pain management, procedures, bathroom and other care routines, personal items, smoking policy, room service/diet, and visiting hours. Information on how to activate the Rapid Response Team has been discussed. Patient/Family are encouraged to report perceived risks to care and to ask questions if they do not understand what they are told or what they should do.
[2021-12-15 17:40] LABS: Alanine Aminotransferase 15 U/L (6-50); Albumin Level 3.8 g/dL (3.5-5.1); Alkaline Phosphatase 65 U/L (38-126); Anion Gap 5 mmol/L (8-16); Aspartate Amino Transferase 30 U/L (17-59); Blood Urea Nitrogen 12 mg/dL (9-20); Calcium 8.7 mg/dL (8.4-10.2); Carbon Dioxide 25 mmol/L (22-30); Chloride 109 mmol/L (98-107); Estimated CRCL calculation 58 ml/min; Estimated Glomerular Filt Rate > 60; Glucose 87 mg/dL (65-110); Potassium 3.8 mmol/L (3.4-5.0); Sodium 139 mmol/L (137-145)
--- NOTE | 2021-12-15 22:24 | PM.IMHP ---
H&P: HPI History of Present Illness Date/Time: Patient was placed observation status for expected length of stay less than 23 hours for management, will plan to re-evaluate tomorrow for improvement. 12/15/21 22:24 Chief Complaint: Fall Narrative: Mr. Marc is an 81-year-old gentleman who presented emergency room with complaints of falling. Patient states that around 2:00 a.m. he went to the bathroom and when he went to get up off the toilet he turned and he fell to his knees. Patient states that he has been having difficulty going from sitting to standing because of his age and osteoarthritis. Patient states he did feel mildly lightheaded when he went from sitting to standing. Patient denied any chest pain, shortness a breath, syncopal, or near syncopal episodes. Patient denied any palpitations. Patient denies any dysuria, hematuria, frequency, or urgency. Patient states he does take a water pill at home, but does not take any type of potassium supplementation. Patient states he has been eating and drinking at home without any difficulty. Patient denies any fever or chills, cough, cold or flu type symptoms, constipation, or diarrhea. Upon evaluation emergency room patient was noted to have a urinary tract infection and abrasions to bilateral knees. Patient has a known history of COPD, GERD, dyslipidemia, IBS, hypertension, BPH, and bioprosthetic aortic valve replacement. Review of Systems Review of Systems: A 12 point review of systems was completed patient all pertinent positive and negative per HPI the remainder are unremarkable. [facility] Past Medical History Medical History (Updated 12/15/21 @ 14:47 by Nicole Falcon PA-C) Asthma COPD (chronic obstructive pulmonary disease) GERD (gastroesophageal reflux disease) History of brain tumor HTN (hypertension) Hypercholesterolemia IBS (irritable bowel syndrome) Left cataract Systolic murmur Surgical History Surgical History H/O umbilical hernia repair History of aortic valve replacement Family History Family History Father Acute myocardial infarction Hypertension Mother Cerebrovascular accident Hypertension Mother Ovarian cancer Father Lung cancer Sibling Hypertension Social History Social History Smoking packs per day: 1 Smoking cigarettes per day: 20.0 Years smoked: 3 Smoking pack-years: 3.00 Smoking status: Former smoker Alcohol intake: never Substance use: never Substance use type: does not use Gender identity (if verbalized by the patient): Male Spiritual care concerns: No Meds Home Medications and Allergies Home Medications Medication Instructions Recorded Confirmed Type albuterol sulfate 90 mcg/actuation 2 puff inhalation QID PRN 08/28/19 12/15/21 History aerosol inhaler (ProAir HFA) Shortness Of Breath amlodipine 5 mg tablet 5 mg PO DAILY 08/28/19 12/15/21 History dexlansoprazole 30 mg 30 mg PO DAILY 08/28/19 12/15/21 History capsule,biphase delayed release (Dexilant) lisinopril 5 mg tablet 2.5 mg PO DAILY 08/28/19 12/15/21 History umeclidinium 62.5 mcg-vilanterol 1 inh inhalation DAILY 08/28/19 12/15/21 History 25 mcg/actuation powdr for inhalation (Anoro Ellipta) vitamin B complex 1 cap PO DAILY 08/28/19 12/15/21 History ergocalciferol (vitamin D2) 1,000 1 tablet PO DAILY 08/26/20 12/15/21 History unit tablet simvastatin 20 mg tablet 20 mg PO DAILY 04/08/21 12/15/21 History acetaminophen 650 mg 650 mg PO Q8H PRN Pain 08/05/21 12/15/21 History tablet,extended release azelastine 137 mcg (0.1 %) nasal 2 spray intranasal BID 08/05/21 12/15/21 History spray aerosol aspirin 81 mg tablet,delayed 81 mg PO DAILY 12/15/21 12/15/21 History release (Aspirin Low Dose) cholecalciferol (vitamin D3) 25 25 mcg PO DAILY 12/15/21
[2021-12-16] MEDS: HYDROcodone/acetaminophen (*CRX) 5-325 MG TABLET 1 TAB PO ×2 (02:36→10:17)
[2021-12-16 05:53] LABS: Basophils Absolute Auto 0.1 K/mm3 (0.0-0.1); Basophils Percent Auto 0.9 % (0.2-1.2); Eosinophils Absolute Auto 0.3 K/mm3 (0-0.3); Eosinophils Percent Auto 4.3 % (0-4.4); Hematocrit 30.9 % (42.0-52.0); Hemoglobin 9.7 g/dL (14.0-18.0); Immature Granulocyte Absolute 0.03 K/mm3 (0.00-0.031); Immature Granulocyte Percent A 0.4 % (0-0.5); Lymphocytes Absolute Auto 1.49 K/mm3 (0.9-3.2); Lymphocytes Percent Auto 18.9 % (18.3-44.2); Mean Corpuscular HGB Conc 31.4 g/dl (32-36); Mean Corpuscular Hemoglobin 27.5 pg (26-34); Mean Corpuscular Volume 87.5 fl (80-100); Mean Platelet Volume 9.9 fl (7.4-10.4); Monocytes Percent Auto 12.5 % (2.6-8.5); Platelet Count Result 310 k/mm3 (150-375); Red Blood Count 3.53 M/mm3 (4.6-6.20); Red Cell Distribution Width 16.8 % (11.5-14.5); White Blood Count 7.9 K/mm3 (4.5-10.0)
[2021-12-16 06:00] VITALS: BP 158/88; PULSE 68; RESP 18; TEMP 36.8; O2SAT 93
[2021-12-16 06:10] LABS: Anion Gap 4 mmol/L (8-16); Blood Urea Nitrogen 9 mg/dL (9-20); Calcium 8.5 mg/dL (8.4-10.2); Carbon Dioxide 25 mmol/L (22-30); Chloride 107 mmol/L (98-107); Estimated CRCL calculation 66 ml/min; Estimated Glomerular Filt Rate > 60; Glucose 88 mg/dL (65-110); Magnesium 1.6 mg/dL (1.6-2.3); Potassium 3.6 mmol/L (3.4-5.0); Sodium 136 mmol/L (137-145)
[2021-12-16] MEDS: UMECLIDINIUM/VILANTEROL 62.5-25 MCG ELLIPTA 1 PUFF INHALATION (08:05)
[2021-12-16] MEDS: amLODIPine BESYLATE 5 MG TABLET PO (09:25)
[2021-12-16] MEDS: VITAMIN B COMPLEX CAPSULE 1 CAP PO (09:25)
[2021-12-16] MEDS: lisinopriL 2.5 MG TABLET PO (09:25)
[2021-12-16] MEDS: AZELASTINE HCL NASAL 0.1% 137 MCG/SPR 30 ML BTL 2 SPRAY NASAL (09:25)
[2021-12-16] MEDS: ASPIRIN 81 MG ENTERIC TABLET PO (09:25)
[2021-12-16] MEDS: FINASTERIDE 5 MG TABLET PO (09:25)
[2021-12-16] MEDS: SIMVASTATIN 20 MG TABLET PO (09:25)
[2021-12-16] MEDS: CHOLECALCIFEROL 1,000 UNITS TABLET 1000 UNITS PO (09:25)
[2021-12-16] MEDS: OPTI-GEN TAB 1 TABLET PO (09:25)
[2021-12-16] MEDS: PANTOPRAZOLE 40 MG TABLET PO (09:26)
[2021-12-16] MEDS: prednisoLONE ACETATE 1% OPHTH 5 ML 1 DROP EACH EYE (09:26)
[2021-12-16] MEDS: ENOXAPARIN 40 MG/0.4 ML SYRINGE SUB-Q (09:26)
[2021-12-16 14:30] VITALS: BP 143/90; PULSE 93; RESP 16; TEMP 36.8; O2SAT 99
[2021-12-16 14:34] VITALS: BP 154/78
[2021-12-16 14:35] VITALS: BP 158/82
[2021-12-16 14:38] VITALS: BP 125/75
--- NOTE | 2021-12-16 16:47 | PC.NURSE ---
Commodity Supervisor called Daughter Elvira she was notified that pt is leaving AMA, pt has called a Cab already. Elvira states she is not going to attempt to talk to him or see if she can get him to stay. She states his mind is made up and he has left AMA before. Commodity Supervisor asked Elvira if she would do wellness check on pt once he gets home. She states she will check on him tonight.
--- NOTE | 2021-12-16 16:50 | PC.NURSE ---
Patient notified of risks of leaving AMA. Dr. Méndez notified. Follow up instructions given to patient. Patient signed AMA form.
--- NOTE | 2021-12-16 18:51 | PM.IMPN ---
Progress Note: A&P Assessment and Plan (1) Urinary tract infection: Qualifiers: Hematuria presence: with hematuria Urinary tract infection type: acute cystitis Qualified Code(s): N30.01 - Acute cystitis with hematuria Code(s): N39.0 - Urinary tract infection, site not specified Status: Acute Assessment and Plan: On Rocephin. Urine culture pending await culture and sensitivity (2) Dizziness: Code(s): R42 - Dizziness and giddiness Status: Acute Assessment and Plan: Patient did have an episode of dizziness when standing up and fell to his knees. Mildly orthostatic positive. Continue to monitor maintain hydration (3) Acute hypokalemia: Code(s): E87.6 - Hypokalemia Status: Acute Assessment and Plan: Patient states he is on a diuretic at home, but there is not 1 listed on his home med list. Plan Continue PT OT evaluate and treat. Monitor orthostatic vitals. Resume home medication. Subjective Date/time seen: 12/16/21 18:51 Interval history: HPI:Mr. Tatum is an 81-year-old gentleman who presented emergency room with complaints of falling.? Patient states that around 2:00 a.m. he went to the bathroom and when he went to get up off the toilet he turned and he fell to his knees.? Patient states that he has been having difficulty going from sitting to standing because of his age and osteoarthritis.? Patient states he did feel mildly lightheaded when he went from sitting to? standing.? Patient denied any chest pain, shortness a breath, syncopal, or near syncopal episodes.? Patient denied any palpitations.? Patient denies any dysuria, hematuria, frequency, or urgency.? Patient states he does take a water pill at home, but does not take any type of potassium supplementation.? Patient states he has been eating and drinking at home without any difficulty.? Patient denies any fever or chills, cough, cold or flu type symptoms, constipation, or diarrhea.? Upon evaluation emergency room patient was noted to have a urinary tract infection and abrasions to bilateral knees. Patient has a known history of COPD, GERD, dyslipidemia, IBS, hypertension, BPH, and bioprosthetic aortic valve replacement. 12/16/2021 seen this morning feeling better. Work with the physical therapy and occupational therapy today. Denies any chest pain shortness of breath denies any dizziness or lightheadedness Review of Systems Review of Systems: All systems reviewed & are unremarkable except as noted in HPI and below (HPI) Exam Narrative: Constitutional: Patient is well-nourished in no acute distress. Patient is alert and oriented x3 HEENT: Moist mucous membranes. No scleral icterus. No lymphadenopathy. Neck: No carotid bruits noted no JVD noted Lungs: Lung sounds are clear to auscultation bilaterally. No accessory muscle use. No rhonchi, rales, or wheezes noted. Cardiovascular: Apical pulse is regular rate and rhythm. S1-S2 noted, no S3 or S4 noted. 2/6 systolic murmur noted. Abdomen: Soft, round, and nontender. No palpable masses. Extremities: No edema. Nontender. Skin: No rashes or lesions. Warm and dry. Skin is intact. Abrasions noted bilateral knees. Neurological: No focal neurological deficits. Cranial nerves II-XII grossly intact. Psychiatric: Cooperative, appropriate mood, and affect Objective Data Vital Signs Vital Signs: Vital Signs - 24 hr 12/15/21 19:55 12/15/21 20:00 12/16/21 06:00 Temperature 97.2 F L 98.3 F Pulse Rate 70 70 68 Respiratory Rate 20 20 18 Blood Pressure 183/73 H 158/88 H Pulse Oximetry 98 98 93 Oxygen Delivery Room Air 12/16/21 08:55 12/16/21 10:28 12/16/21 14:30 Temperature 98.3 F Pulse Rate 93 Respiratory Rate 16 Blood Pressure 143/90 H Pulse Oximetry 99 Oxygen Delivery Room Air Room Air 12/16/21 14:34 12/16/21 14:35 12/16/21 14:38 Temperature Pulse Rate Respiratory Rate Blood Pressure 154/78 H 158/8
--- NOTE | 2021-12-16 18:54 | PM.DS ---
DS: Admitting Diagnosis Discharge Date 12/16/21 Admitting Diagnosis Fall DS: Discharge Diagnosis Discharge Diagnosis (1) Urinary tract infection: Qualifiers: Hematuria presence: with hematuria Urinary tract infection type: acute cystitis Qualified Code(s): N30.01 - Acute cystitis with hematuria Code(s): N39.0 - Urinary tract infection, site not specified Status: Acute Assessment and Plan: On Rocephin. Urine culture pending await culture and sensitivity (2) Dizziness: Code(s): R42 - Dizziness and giddiness Status: Acute Assessment and Plan: Patient did have an episode of dizziness when standing up and fell to his knees. Mildly orthostatic positive. Continue to monitor maintain hydration (3) Acute hypokalemia: Code(s): E87.6 - Hypokalemia Status: Acute Assessment and Plan: Patient states he is on a diuretic at home, but there is not 1 listed on his home med list. Plan Continue PT OT evaluate and treat. Monitor orthostatic vitals. Resume home medication. DS: Summary Hospital Course Hospital Course: Patient was admitted for further evaluation and observation status due to falling he was mildly orthostatic. He was noted to have urinary tract infection. He was treated with antibiotics during the hospital stay. His cultures were not back was advised to stay in the hospital for further treatment. However he was adamant and left against medical advise on 12/16/2021 Time Spent with Patient Time attestation: Total time spent providing and/or coordinating discharge services: Exam Narrative: Constitutional: Patient is well-nourished in no acute distress. Patient is alert and oriented x3 HEENT: Moist mucous membranes. No scleral icterus. No lymphadenopathy. Neck: No carotid bruits noted no JVD noted Lungs: Lung sounds are clear to auscultation bilaterally. No accessory muscle use. No rhonchi, rales, or wheezes noted. Cardiovascular: Apical pulse is regular rate and rhythm. S1-S2 noted, no S3 or S4 noted. 2/6 systolic murmur noted. Abdomen: Soft, round, and nontender. No palpable masses. Extremities: No edema. Nontender. Skin: No rashes or lesions. Warm and dry. Skin is intact. Abrasions noted bilateral knees. Neurological: No focal neurological deficits. Cranial nerves II-XII grossly intact. Psychiatric: Cooperative, appropriate mood, and affect DS: Data Data Completed and Pending Labs on day of discharge: Labs from last 24 hours 12/16/21 12/16/21 05:29 05:29 WBC 7.9 RBC 3.53 L Hgb 9.7 L Hct 30.9 L MCV 87.5 MCH 27.5 MCHC 31.4 L RDW 16.8 H Plt Count 310 MPV 9.9 Immature Gran % (Auto) 0.4 Neut % (Auto) 63.0 Lymph % (Auto) 18.9 Mckean % (Auto) 12.5 H Eos % (Auto) 4.3 Baso % (Auto) 0.9 Lymph # (Auto) 1.49 Mckean # (Auto) 1.0 H Eos # (Auto) 0.3 Baso # (Auto) 0.1 Abs Immat Gran (auto) 0.03 Absolute Neuts (auto) 5.0 Absolute Nucleated RBC 0.0 Nucleated RBC % 0.0 Sodium 136 L Potassium 3.6 Chloride 107 Carbon Dioxide 25 Anion Gap 4 L BUN 9 Creatinine 0.70 Estim Creat Clear Calc 66 Estimated GFR > 60 Glucose 88 Calcium 8.5 Magnesium 1.6 Preliminary micro results at discharge 12/15/21 11:29 Urine Culture - Preliminary Urine Clean Catch Escherichia Coli Discharge Plan Discharge Consulting providers: Andres Frederick Patient Disposition: Left Against Medical Advice Discharge Medications: No Action simvastatin 20 mg tablet 20 mg PO DAILY azelastine 137 mcg (0.1 %) aerosol,spray 2 spray INTRANASAL BID acetaminophen [Tylenol Arthritis] 650 mg Tablet Extended Release 650 mg PO Q8H PRN (Reason: Pain) amlodipine 5 mg Tablet 5 mg PO DAILY lisinopril 5 mg Tablet 2.5 mg PO DAILY albuterol sulfate [ProAir HFA] 90 mcg/actuation Hfa Aerosol Inhaler 2 puff INHALATION QID PRN (Reason: Shortness
== END 2021-12-16 16:55 | disposition left against medical advice (07) | DRG 690 ==
LOC: ANHED 14:47 → ANH3MED 15:53
PROVIDERS: Nurse Practitioner Adult Health; Physician Assistant; Admitting Provider Family Medicine; Emergency Provider Emergency Medicine; Visit Provider Internal Medicine
DX: N30.01 Acute cystitis with hematuria (principal); R42 Dizziness and giddiness; E87.6 Hypokalemia; J44.9 Chronic obstructive pulmonary disease, unspecified; K21.9 Gastro-esophageal reflux disease without esophagitis; M19.90 Unspecified osteoarthritis, unspecified site; I10 Essential (primary) hypertension; K58.9 Irritable bowel syndrome, unspecified; E78.5 Hyperlipidemia, unspecified; N40.0 Benign prostatic hyperplasia without lower urinary tract symptoms; S80.212A Abrasion, left knee, initial encounter; S80.211A Abrasion, right knee, initial encounter; W18.39XA Other fall on same level, initial encounter; Z79.82 Long term (current) use of aspirin; Z79.899 Other long term (current) drug therapy; Z86.03 Personal history of neoplasm of uncertain behavior; Z87.891 Personal history of nicotine dependence; Z95.4 Presence of other heart-valve replacement
CPT/HCPCS: 36415; 70450; 71046; 71275; 72125; 73030; 73564; 80048; 80053; 81001; 83735; 84484; 85025; 85380; 87077; 87086; 87088; 87186; 93005; 94640; 96361; 96365; 96367; 96372; 97161; 97165; 99285; A9270; G0378; J0131; J0696; J1650; J7040; Q9967

== ENCOUNTER 2021-12-17 10:40 | Emergency (ER) | payer MEDICARE, BC, SELFPAY ==
--- NOTE | 2021-12-17 10:51 | ED.GENADULT ---
HPI - General Adult General Chief complaint: Upper Respiratory Infection Stated complaint: Congestion Time Seen by Provider: 12/17/21 10:51 Source: patient and RN notes reviewed Mode of arrival: ambulatory Limitations: no limitations History of Present Illness HPI narrative: 81-year-old male presents to the [facility] following signing out AMA from [facility] yesterday. Patient is requesting further treatment for the UTI that he should have received per patient. Patient is requesting oral medications for the UTI. Patient is denying any complaints at this time. Patient states that he signed out AMA because the channels on the TV did not match up at home, states he could not figure it out and someone had to come to his room and watch him pee. States that everyone was getting annoyed with him. States that he requested oral medications but because he signed out AMA they would not write for any until all the tests came back. Patient is refusing to return to the ER states that he would like medicaion for the UTI and pain medications Related Data Home Medications Medication Instructions Recorded Confirmed albuterol sulfate 90 mcg/actuation 2 puff inhalation QID PRN 08/28/19 12/17/21 aerosol inhaler (ProAir HFA) Shortness Of Breath amlodipine 5 mg tablet 5 mg PO DAILY 08/28/19 12/17/21 dexlansoprazole 30 mg 30 mg PO DAILY 08/28/19 12/17/21 capsule,biphase delayed release (Dexilant) lisinopril 5 mg tablet 2.5 mg PO DAILY 08/28/19 12/17/21 umeclidinium 62.5 mcg-vilanterol 1 inh inhalation DAILY 08/28/19 12/17/21 25 mcg/actuation powdr for inhalation (Anoro Ellipta) vitamin B complex 1 cap PO DAILY 08/28/19 12/17/21 ergocalciferol (vitamin D2) 1,000 1 tablet PO DAILY 08/26/20 12/17/21 unit tablet simvastatin 20 mg tablet 20 mg PO DAILY 04/08/21 12/17/21 acetaminophen 650 mg 650 mg PO Q8H PRN Pain 08/05/21 12/17/21 tablet,extended release azelastine 137 mcg (0.1 %) nasal 2 spray intranasal BID 08/05/21 12/17/21 spray aerosol aspirin 81 mg tablet,delayed 81 mg PO DAILY 12/15/21 12/17/21 release (Marcel Low Dose Aspirin) cholecalciferol (vitamin D3) 25 25 mcg PO DAILY 12/15/21 12/17/21 mcg (1,000 unit) capsule (Vitamin D3) finasteride 5 mg tablet 1 tablet PO DAILY 12/15/21 12/17/21 [id number] acid 300 1 tablet PO DAILY 12/15/21 12/17/21 mcg-lycopene 600 mcg-lutein 300 mcg tablet (Centrum Silver Men) prednisolone acetate 1 % eye 1 drp EACH EYE DAILY 12/15/21 12/17/21 drops,suspension tamsulosin 0.4 mg capsule 1 cap PO QPM 12/15/21 12/17/21 Allergies Allergy/AdvReac Type Severity Reaction Status Date / Time grass pollen Allergy Hives Verified 12/17/21 10:49 Review of Systems Review of Systems: All systems reviewed & are unremarkable except as noted in HPI and below Constitutional: Constitutional: Reports no additional constitutional complaints, Denies chills and Denies fever(s) Eyes: Eyes: Reports no additional eye complaints ENT: Reports system reviewed and no additional complaints, except as documented Cardiovascular: Cardiovascular: Reports no additional cardiovascular complaints Respiratory: Respiratory: Reports no additional respiratory complaints Gastrointestinal: Gastrointestinal: Reports no additional gastrointestinal complaints Musculoskeletal: Musculoskeletal: Reports no additional musculoskeletal complaints Integumentary/Breasts: Skin/Breast: Reports system reviewed and no additional complaints, except as docu Neurologic: Reports system reviewed and no additional complaints, except as documented Psychiatric: Psychiatric: Reports no additional psychiatric complaints Allergic/Immunologic: Allergic/Immunologic: Reports no additional allergic/immunologic complaints [facility] Past Medical History Medical History (Updated 12/17/21 @ 11:10 by Latesha Ding APRN) Asthma COPD (chronic obstructive pulmonary disease) GERD (gastroesophageal reflux disease) Hi
[2021-12-17 10:54] VITALS: BP 128/69; PULSE 52; RESP 16; TEMP 36.6; O2SAT 98
== END 2021-12-17 11:15 | disposition home or self-care (01) ==
PROVIDERS: Emergency Provider Nurse Practitioner
DX: N39.0 Urinary tract infection, site not specified (principal); Z87.891 Personal history of nicotine dependence; J44.9 Chronic obstructive pulmonary disease, unspecified; K21.9 Gastro-esophageal reflux disease without esophagitis; I10 Essential (primary) hypertension; E78.00 Pure hypercholesterolemia, unspecified; H26.9 Unspecified cataract; Z95.2 Presence of prosthetic heart valve; R01.1 Cardiac murmur, unspecified
CPT/HCPCS: 99213; G0463

== ENCOUNTER 2023-09-09 10:40 | Emergency (ER) | payer MEDICARE, BC, SELFPAY ==
[2023-09-09 10:58] VITALS: BP 134/74; PULSE 57; RESP 16; TEMP 37.1; O2SAT 97
--- NOTE | 2023-09-09 11:21 | ED.EXTPRO ---
HPI - Extremity Problem General Chief complaint: Extremity Problem,Nontraumatic Stated complaint: infected toes on right foot, not feeling well Time Seen by Provider: 09/09/23 11:05 Source: patient and RN notes reviewed Mode of arrival: ambulatory Limitations: no limitations History of Present Illness HPI Narrative: Patient presents today complaining of a wound to the tip of his right 3rd toe x2 months. Reports pain to the tip of this toe as well. One month ago he had his toenails trimmed at his assisted living facility, presumably by a podiatry service. No history of diabetes. Patient also reports mild cough since yesterday. Hx of COPD. Denies shortness of breath. Related Data Home Medications Medication Instructions Recorded Confirmed albuterol sulfate 90 mcg/actuation 2 puff inhalation QID PRN 08/28/19 09/09/23 aerosol inhaler (ProAir HFA) Shortness Of Breath amlodipine 5 mg tablet 5 mg PO DAILY 08/28/19 09/09/23 dexlansoprazole 30 mg 30 mg PO DAILY 08/28/19 09/09/23 capsule,biphase delayed release (Dexilant) lisinopril 5 mg tablet 2.5 mg PO DAILY 08/28/19 09/09/23 umeclidinium 62.5 mcg-vilanterol 1 inh inhalation DAILY 08/28/19 09/09/23 25 mcg/actuation powdr for inhalation (Anoro Ellipta) vitamin B complex 1 cap PO DAILY 08/28/19 09/09/23 ergocalciferol (vitamin D2) 1,000 1 tablet PO DAILY 08/26/20 09/09/23 unit tablet simvastatin 20 mg tablet 40 mg PO DAILY 04/08/21 12/17/21 acetaminophen 650 mg 650 mg PO Q8H PRN Pain 08/05/21 09/09/23 tablet,extended release azelastine 137 mcg (0.1 %) nasal 2 spray intranasal BID 08/05/21 09/09/23 spray aerosol aspirin 81 mg tablet,delayed 81 mg PO DAILY 12/15/21 09/09/23 release (Marcel Low Dose Aspirin) cholecalciferol (vitamin D3) 25 25 mcg PO DAILY 12/15/21 09/09/23 mcg (1,000 unit) capsule (Vitamin D3) finasteride 5 mg tablet 1 tablet PO DAILY 12/15/21 09/09/23 kivmmxve-cu-pvxqf 300 mcg-K 60 1 tablet PO DAILY 12/15/21 09/09/23 mcg-lycop 600 mcg-lutein 300 mcg tablet (Centrum [place] Men) prednisolone acetate 1 % eye 1 drp EACH EYE DAILY 12/15/21 09/09/23 drops,suspension tamsulosin 0.4 mg capsule 1 cap PO QPM 12/15/21 09/09/23 Allergies Allergy/AdvReac Type Severity Reaction Status Date / Time grass pollen Allergy Hives Verified 09/09/23 10:44 Review of Systems Review of Systems: CONSTITUTIONAL: Denies body aches, fever, chills, or sweats. EYES: Denies visual changes, redness, or discharge. ENT: Denies rhinorrhea, congestion, sore throat, or otalgia. CARDIOVASCULAR: Denies chest pain, palpitations, or edema. RESPIRATORY: Denies dyspnea. +cough SKIN: Denies rash, itching. + wound to tip of toe NEUROLOGIC: Denies headache, numbness, tingling, or weakness. PSYCH: Denies depression or anxiety. [facility] Past Medical History Medical History Asthma COPD (chronic obstructive pulmonary disease) GERD (gastroesophageal reflux disease) History of brain tumor HTN (hypertension) Hypercholesterolemia IBS (irritable bowel syndrome) Left cataract Systolic murmur Surgical History Surgical History H/O umbilical hernia repair History of aortic valve replacement Family History Family History Father Acute myocardial infarction Hypertension Mother Cerebrovascular accident Hypertension Mother Ovarian cancer Father Lung cancer Sibling Hypertension Social History Social History Smoking packs per day: 1 Smoking cigarettes per day: 20.0 Years smoked: 3 Smoking pack-years: 3.00 Smoking status: Former smoker Alcohol intake: never Substance use: never Substance use type: does not use Occupation/Education: retired Gender identity (if verbalized by the patient): Male
== END 2023-09-09 11:35 | disposition home or self-care (01) ==
PROVIDERS: Emergency Provider Nurse Practitioner
DX: L03.031 Cellulitis of right toe (principal); J06.9 Acute upper respiratory infection, unspecified; Z87.891 Personal history of nicotine dependence; J44.9 Chronic obstructive pulmonary disease, unspecified; K21.9 Gastro-esophageal reflux disease without esophagitis; I10 Essential (primary) hypertension; E78.00 Pure hypercholesterolemia, unspecified; R01.1 Cardiac murmur, unspecified; Z95.2 Presence of prosthetic heart valve; Z79.82 Long term (current) use of aspirin
CPT/HCPCS: 99213; G0463